=== PATIENT | female | born 1965 | race Caucasian/White ===

== ENCOUNTER → 2016-03-05 | Outpatient (REF) | payer BC ==
[~2016-03-05] MED LIST: BACL10TA2 PO; DICL75TA PO; MAGN250T5 PO; RANI15TA PO; TYLE167L PO; ZYRT10CA PO
== END ==
LOC: M LAB REF 14:22
PROVIDERS: ATTEND Nurse Practitioner Family
DX: N76.0 Acute vaginitis (principal); R26.89 Other abnormalities of gait and mobility

== ENCOUNTER → 2016-04-02 | Outpatient (CLI) | payer BC ==
[~2016-04-02] MED LIST changes: +ISOVUE-M 300 61% 15ML VIAL (Q9967) As Ordered ONE; +LIDOCAINE 1% SDV INJ 30 ML VIAL As Ordered ONE; +diazePAM 5 MG TAB As Ordered ONE; +methylPREDNISolone SUSP 40 MG/ML (DEPO-medrol) VIAL (J1030) As Ordered ONE
--- NOTE | 2016-04-02 13:12 | REP ---
Partial lumbar spine series: Three views. History: Pain. 7 seconds of fluoroscopy time is reported. Findings: A sequence of three fluoroscopically obtained last image hold spot radiographs of the lumbosacral junction document needle position and contrast injection associated with lumbar epidural injection procedure. Signed by Randy Dos Santos MD 04/02/2016 02:59 P
--- NOTE | 2016-04-08 01:23 | ECWPNPC ---
PATIENT NAME: BHAVESH BAILEY : 1965 GENDER: FEMALE VISIT DATE: 04/02/2016 DISCHARGE DATE: 04/02/16 1304 VISIT LOCKED DATE TIME: PHYSICIAN: NEVILLE ANDRADE RESOURCE: NEVILLE ANDRADE REASON FOR APPOINTMENT 1. LESB HISTORY OF PRESENT ILLNESS HISTORY OF PRESENT ILLNESS: PAIN THE PATIENT DESCRIBES THE PAIN... FALL RISK SCREENING: SCREENING :NO FALLS IN THE PAST YEAR CURRENT MEDICATIONS TAKING ZYRTEC 1 1 TAB(S) P.O. DAILY NEEDED, NOTES: 04/01/162029 TAKING EPIPEN 0.3 MG/0.3ML (1:1000) DEVICE 2 ODILON DIRECTED INTRAMUSCULAR PRN BEE STING TAKING DICLOFENAC SODIUM 75 MG TABLET DELAYED RELEASE 1 TABLET ORALLY TWICE A DAY, NOTES: NONE LAST WEEK TAKING RANITIDINE HCL 300 MG CAPSULE 1 CAPSULE AT BEDTIME ORALLY ONCE A DAY, NOTES: 04/02/16 0430 TAKING IBUPROFEN 600 MG TABLET 1 TABLET ORALLY NEEDED 3X/DAY, NOTES: LAST WEEK TAKING HYDROCODONE-ACETAMINOPHEN 10-325 MG TABLET 1 TABLET ORALLY AT PAIN CENTER THE DAY OF PROCEDURE, NOTES: 04/02/16 1133 TAKING OMEPRAZOLE 40 MG CAPSULE DELAYED RELEASE 1 CAPSULE ORALLY ONCE A DAY, NOTES: 04/02/16 043 TAKING VITAMIN D3 2000 UNIT CAPSULE 1 CAPSULE ORALLY ONCE A DAY, NOTES: 04/01/16 TAKING VITAMIN D (ERGOCALCIFEROL) 60308 UNIT CAPSULE 1 CAPSULE ORALLY WEEKLY, NOTES: 03/26/16 TAKING BACLOFEN 10 MG TABLET 1 TAB(S) ORALLYPER PAIN CLINIC DIRECTED, NOTES: LAST WEEK03/30/16 NOT-TAKING CLONAZEPAM 0.5 MG TABLET 1 TABLET ORALLY DIRECTED MEDICATION LIST REVIEWED AND RECONCILED WITH THE PATIENT PAST MEDICAL HISTORY HIATAL HERNIA IBS ALLERGIES AUGMENTIN: YEAST INFECTION: SIDE EFFECTS BACTRIM: SHORTNESS OF BREATH: ALLERGY FLAGYL: RASH/SOB SURGICAL HISTORY LAPAROSCOPY HYSTERECTOMY 2012 SOCIAL HISTORY GENERAL: TOBACCO USE ARE YOU A:NONSMOKER LEARNING BARRIERS / SPECIAL NEEDS ORIENTED TO PLAN OF CARE: PATIENT, PAIN MANAGEMENT PATIENT, ORIENTED TO PLAN OF CARE: PATIENT, PAIN MANAGEMENT PATIENT. NEW PATIENT PAIN DIARY TODAY'S VISITNOTES FROM 0-10, WHAT LEVEL IS YOUR PAIN TODAY?0 PAIN CLINIC PFS, CLERGY, PUBLIC HEALTH REFERRALS PFS REFERRAL NEEDED?NO CLERGY REFERRAL NEEDED?NO PUBLIC HEALTH REFERRAL NEEDED?NO WAS THE PROVIDER NOTIFIED OF ANY PERTINENT INFO?NO PFS REFERRAL NEEDED?NO CLERGY REFERRAL NEEDED?NO PUBLIC HEALTH REFERRAL NEEDED?NO WAS THE PROVIDER NOTIFIED OF ANY PERTINENT INFO?NO HOSPITALIZATION/MAJOR DIAGNOSTIC PROCEDURE FOR SURGERIES REVIEW OF SYSTEMS CONSTITUTIONAL: ANY CHANGE IN YOUR MEDICAL CONDITION? YES PT NOTES MUSCLE CRAMPS AND SPASMS OF LEGS X 1 MONTH. . CHILLS NO . FEVER NO . INFECTION: DO YOU HAVE NEW INFECTIONS? NO . DO YOU HAVE HISTORY OF MRSA? NO . MUSCULOSKELETAL: ANY NEW PATTERNS OF PAIN OR NUMBNESS? NO . GASTROENTEROLOGY: ANY NEW CHANGE IN BOWEL CONTROL? NO . GENITOURINARY: ANY NEW CHANGE IN BLADDER CONTROL? NO . IS THERE A CHANCE YOU COULD BE ? NO . HEMATOLOGY/LYMPH: DO YOU TAKE ANY BLOOD THINNERS? (FOR EXAMPLE- COUMADIN, PLAVIX, AGGRENOX, PLATEL, PRADAXA, OR XARELTO) NO . WHEN WAS YOUR LAST DOSE? DATE: TIME: . NEUROLOGY: HAVE YOU FALLEN IN THE PAST 6 MONTHS? YES FELL ON ICE-NO ED EVAL . ANY NEW EXTREMITY NUMBNESS OR WEAKNESS? NO . CARDIOLOGY: DO YOU HAVE A PACEMAKER OR DEFIBRILLATOR? NO . RESPIRATORY: HAVE YOU BEEN SICK IN THE PAST WEEK? NO . FEVER NO . FLU LIKE SYMPTOMS? NO . COUGH NO . INTEGUMENTARY: DO YOU HAVE ANY RASHES OR OPEN SORES? NO . ALLERGIC/IMMUNO: ARE YOU ALLERGIC TO SHELLFISH OR IV DYE? NO . ANY NEW ALLERGIES? NO . PSYCHIATRIC: DO YOU HAVE THOUGHTS OF HURTING YOURSELF OR SOMEONE ELSE? NO . ARE YOU ABUSED, NEGLECTED, OR IN AN UNSAFE ENVIRONMENT? NO . ENDOCRINOLOGY: ARE YOU DIABETIC? NO . OTHER: DO YOU NEED ANY PRESCRIPTIONS? YES BACLOFEN . IF YES, PLEASE LIST: ____ . ANY NEW PROBLEMS WITH YOUR MEDICATIONS? NO . WHEN DID YOU LAST EAT? ____04/02/16 0430 . WHEN DID YOU LAST DRINK? ____04/02/16 0830 . WHAT DID YOU LAST DRINK? ____WATER/CHRIS JUWAN . NAME OF PERSON DRIVING YOU HOME? ____STEPHY . DO YOU HAVE ANY OTHER QUESTIONS OR CONCERNS NO . REVIEWED BY: PROVIDER: . VITAL SIGNS WT 170 LBS, HT 62 IN, BMI 31.09 INDEX, BP 119/59 MM HG, HR 67 /MIN, RR 16 /MIN, TEMP 97.2 F, OXYGEN SAT % 96, NA INITIALS TL 1047. ASSESSMENTS INTERVERTEBRAL DISC DISORDERS WITH RADICULOPATHY, LUMBOSACRAL REGION - M51.17 (PRIMARY) TREATMENT OTHERS START CYCLOBENZAPRINE HCL TABLET, 10 MG, 1 TABLET, ORALLY NEEDED FOR SPASMS AND PAIN, BEFORE BEDTIME, 30 DAY(S), 30, REFILLS 0 PROCEDURES PRE PROCEDURE DIAGNOSIS LUMBOSACRAL DISC DISORDER WITH RADICULOPATHY, LUMBOSACRAL RADICULOPATHY POST PROCEDURE DIAGNOSIS LUMBOSACRAL RADICULOPATHY , LUMBOSACRAL DISC DISORDER WITH RADICULOPATHY PROCEDURE L5-S1 EPIDURAL STEROID INJECTION UNDER FLUOROSCOPIC GUIDANCE SURGEON DR. NEVILLE ANDRADE STRATEGIC CLIENT EXECUTIVE NONE ANESTHESIA LOCAL PRE PROCEDURE NOTE THE PATIENT HAS A HISTORY OF CHRONIC LOW BACK PAIN. I EVALUATE THE PATIENT AND REVIEWED THE CHART. I WENT OVER THE RISKS, ALTERNATIVES, AND BENEFITS ASSOCIATED WITH THIS PROCEDURE. THE PATIENT WOULD LIKE TO PROCEED AND GIVE CONSENT TO PERFORMED THE PROCEDURE. THE PATIENT DENIES UNEXPLAINABLE WEIGHT LOSS, FEVER, CHILLS, OR NEW CHANGES IN URINARY OR BOWEL CONTROL. DESCRIPTION OF PROCEDURE THE PATIENT WAS BROUGHT TO THE PROCEDURE ROOM AND PLACED IN THE PRONE POSITION. THE LUMBOSACRAL AREA WAS CLEANED WITH BETADINE SOLUTION AND DRAPED ASEPTICALLY. THE PROCEDURE WAS DONE UNDER STERILE CONDITIONS. I CHECKED LATERALITY AND THE LEVEL WHERE THE PROCEDURE WAS GOING TO BE PERFORMED WITH THE PATIENT AND THE SUPPORTING STAFF AT THE MOMENT OF THE TIME OUT IN THE PROCEDURE ROOM. UNDER FLUOROSCOPIC GUIDANCE, THE TARGET POINT WAS SELECTED AT THE INTERLAMINAR LEVEL OF L5-S1. LIDOCAINE WAS USED TO NUMB THE SKIN AND THE SUBCUTANEOUS TISSUE BELOW IT. EPIDURAL TUOHY NEEDLE, 17-GAUGE, WAS ADVANCED UNDER FLUOROSCOPIC GUIDANCE AND FOLLOWING PATIENT FEEDBACK UNTIL THE EPIDURAL SPACE WAS REACHED, 7 CM DEEP INTO THE SKIN BY THE LOSS OF RESISTANCE TECHNIQUE. ISOVUE M DYE 30%, 0.25 ML, WAS INJECTED SHOWING ADEQUATE SPREAD OF THE DYE. THEN, A SOLUTION OF 3 ML OF NORMAL SALINE WITH DEPO-MEDROL 60 MG WAS INJECTED SLOWLY FOLLOWING PATIENT FEEDBACK. THERE WAS NO EVIDENCE OF BLOOD, PARESTHESIA OR CEREBROSPINAL FLUID DURING THE PROCEDURE. THE PATIENT WAS SENT TO THE RECOVERY ROOM. THE PATIENT WAS MOVING THE EXTREMITIES AND DOING WELL. THERE WAS NO COMPLICATION DURING THE PROCEDURE. FLUOROSCOPY TIME WAS 7 SECONDS. POST PROCEDURE NOTE THE PATIENT WILL BE SEEN IN A FOLLOW UP IN THE NEXT FEW WEEKS. INSTRUCTIONS WERE GIVEN, QUESTIONS WERE ANSWERED, AND THE PATIENT EXPRESSED UNDERSTANDING AND AGREES WITH THE PLAN. INSTRUCTIONS WERE GIVEN, QUESTIONS WERE ANSWERED, PATIENT REPORTS UNDERSTANDING AND AGREES WITH THE PLAN. I, SKY MCNAIR, DOCUMENTED THE ABOVE INFORMATION ACTING A SCRIBE FOR DR. ANDRADE. I HAVE REVIEWED THE ABOVE DOCUMENT, WRITTEN BY SKY MCNAIR SCRIBE AND I VERIFY THAT IT IS ACCURATE. DIAGNOSTIC IMAGING [facility] FLUORO GUIDE SPINE INJECTION (PAIN)[id number] PROCEDURE CODES 34829 LUMBAR/SACRAL W/ IMAGING 6045F RADXPS IN END [id number] PXD FOLLOW UP 3 WEEKS ELECTRONICALLY SIGNED BY NEVILLE ANDRADE MD ON 04/06/2016 AT 01:45 PM EST DISCLAIMER : THIS IS A VISIT SUMMARY EXTRACTED FROM THE [employer] CHART. IT IS NOT A COPY OF THE [employer] PROGRESS NOTE. [facility]
== END ==
LOC: M PAIN 10:50
PROVIDERS: ATTEND Anesthesiology
DX: G89.29 Other chronic pain (principal); M51.17 Intervertebral disc disorders with radiculopathy, lumbosacral region; K44.9 Diaphragmatic hernia without obstruction or gangrene; K58.9 Irritable bowel syndrome, unspecified; Z88.8 Allergy status to other drugs, medicaments and biological substances; Z88.3 Allergy status to other anti-infective agents; Z79.1 Long term (current) use of non-steroidal anti-inflammatories (NSAID); Z79.891 Long term (current) use of opiate analgesic; Z79.899 Other long term (current) drug therapy
CPT/HCPCS: 62323; J1030; Q9967

== ENCOUNTER → 2016-04-06 | Outpatient (REF) | payer BC ==
[~2016-04-06] MED LIST changes: -ISOVUE-M 300 61% 15ML VIAL (Q9967) As Ordered ONE; -LIDOCAINE 1% SDV INJ 30 ML VIAL As Ordered ONE; -diazePAM 5 MG TAB As Ordered ONE; -methylPREDNISolone SUSP 40 MG/ML (DEPO-medrol) VIAL (J1030) As Ordered ONE
== END ==
LOC: M LAB REF 16:18
PROVIDERS: ATTEND Nurse Practitioner Women's Health
DX: Z11.3 Encounter for screening for infections with a predominantly sexual mode of transmission (principal)

== ENCOUNTER → 2016-04-16 | Outpatient (CLI) | payer BC ==
--- NOTE | 2016-04-17 00:02 | ECWPNPC ---
PATIENT NAME: BHAVESH BAILEY : 1965 GENDER: FEMALE VISIT DATE: 04/16/2016 DISCHARGE DATE: 04/16/16 1616 VISIT LOCKED DATE TIME: PHYSICIAN: REBECCA BAINS RESOURCE: REBECCA BAINS REASON FOR APPOINTMENT 1. INCREASED PAIN HISTORY OF PRESENT ILLNESS HISTORY OF PRESENT ILLNESS: HERE FOR POST PROCEDUR F/U.HAD LESI 04-02-16.PAIN LEVEL PRE PROCEDURE 9/10 LOW BACK THEN 5/10 POST PROCEDURE THAT CONTINUES TODAY.REPORTING LESS RIGHT LEG ACHING THAT CONTINUES.C/O OF GENERALIZED PAIN AND PARATHESIAS OVER ENTIRE BODY ECSPECIALLY IN [place]ES.PATIENT STATES THAT JOINT PAIN AND PARATHESIAS BEGAN AFTER NCS UPPER AND LOWER EXTREMITIES APROXIMATLEY 1 1/2 YEARS AGO.PATIENT IS VERY ANGRY AND FRUSTRATED BECAUSE SHE HAS BEEN TO ALOT OF PROVIDERS AND NOBODY CAN TELL HER WHY SHE IS FEELING THIS GENERALIZED PAIN AND PARATHESIAS THAT ARE LOCATED WHERE NEEDLES WERE FOR NCS.DESCRIBES ELECTRICAL SHOCK PAIN IN EXTREMITIES.DENIES RECENT FEVER OR SUDDEN WEIGHT LOSS.ADMITS TO BE UNDER ALOT OF STRESS.REPORTS HAVING GOOD SUPPORT OF FRIENDS AT HOME.DENIES BOWEL OR BLADDER INCONTINENCE. PAIN THE PATIENT DESCRIBES THE PAIN... FALL RISK SCREENING: SCREENING :NO FALLS IN THE PAST YEAR CURRENT MEDICATIONS TAKING ZYRTEC 1 1 TAB(S) P.O. DAILY NEEDED, NOTES: 04/01/162029 TAKING EPIPEN 0.3 MG/0.3ML (1:1000) DEVICE 2 ODILON DIRECTED INTRAMUSCULAR PRN BEE STING TAKING DICLOFENAC SODIUM 75 MG TABLET DELAYED RELEASE 1 TABLET ORALLY TWICE A DAY, NOTES: NONE LAST WEEK TAKING RANITIDINE HCL 300 MG CAPSULE 1 CAPSULE AT BEDTIME ORALLY ONCE A DAY, NOTES: 04/02/16429 TAKING IBUPROFEN 600 MG TABLET 1 TABLET ORALLY NEEDED 3X/DAY, NOTES: LAST WEEK TAKING OMEPRAZOLE 40 MG CAPSULE DELAYED RELEASE 1 CAPSULE ORALLY ONCE A DAY, NOTES: 04/02/16429 TAKING VITAMIN D3 2000 UNIT CAPSULE 1 CAPSULE ORALLY ONCE A DAY, NOTES: 04/01/16 TAKING VITAMIN D (ERGOCALCIFEROL) 35950 UNIT CAPSULE 1 CAPSULE ORALLY WEEKLY, NOTES: 03/26/16 TAKING CYCLOBENZAPRINE HCL 10 MG TABLET 1 TABLET ORALLY NEEDED FOR SPASMS AND PAIN BEFORE BEDTIME TAKING ATIVAN 1 MG TABLET 1 TABLET AT BEDTIME NEEDED ORALLY ONCE A DAY NOT-TAKING BACLOFEN 10 MG TABLET 1 TAB(S) ORALLYPER PAIN CLINIC DIRECTED, NOTES: LAST WEEK03/30/16 NOT-TAKING CLONAZEPAM 0.5 MG TABLET 1 TABLET ORALLY DIRECTED DISCONTINUED HYDROCODONE-ACETAMINOPHEN 10-325 MG TABLET 1 TABLET ORALLY AT PAIN CENTER THE DAY OF PROCEDURE, NOTES: 04/02/16 1133 MEDICATION LIST REVIEWED AND RECONCILED WITH THE PATIENT PAST MEDICAL HISTORY HIATAL HERNIA IBS ALLERGIES AUGMENTIN: YEAST INFECTION: SIDE EFFECTS BACTRIM: SHORTNESS OF BREATH: ALLERGY FLAGYL: RASH/SOB SOCIAL HISTORY GENERAL: TOBACCO USE ARE YOU A:NONSMOKER LEARNING BARRIERS / SPECIAL NEEDS ORIENTED TO PLAN OF CARE: PATIENT, PAIN MANAGEMENT PATIENT, ORIENTED TO PLAN OF CARE: PATIENT, PAIN MANAGEMENT PATIENT. NEW PATIENT PAIN DIARY TODAY'S VISITNOTES FROM 0-10, WHAT LEVEL IS YOUR PAIN TODAY?0 PAIN CLINIC PFS, CLERGY, PUBLIC HEALTH REFERRALS PFS REFERRAL NEEDED?NO CLERGY REFERRAL NEEDED?NO PUBLIC HEALTH REFERRAL NEEDED?NO WAS THE PROVIDER NOTIFIED OF ANY PERTINENT INFO?NO PFS REFERRAL NEEDED?NO CLERGY REFERRAL NEEDED?NO PUBLIC HEALTH REFERRAL NEEDED?NO WAS THE PROVIDER NOTIFIED OF ANY PERTINENT INFO?NO REVIEW OF SYSTEMS CONSTITUTIONAL: ANY CHANGE IN YOUR MEDICAL CONDITION? NO . RECENT ILLNESS DENIES . CHILLS NO . FEVER NO . WEIGHT LOSS DENIES . INFECTION: DO YOU HAVE NEW INFECTIONS? NO . DO YOU HAVE HISTORY OF MRSA? NO . MUSCULOSKELETAL: ANY NEW PATTERNS OF PAIN OR NUMBNESS? NO . GASTROENTEROLOGY: ANY NEW CHANGE IN BOWEL CONTROL? NO . GENITOURINARY: ANY NEW CHANGE IN BLADDER CONTROL? NO . IS THERE A CHANCE YOU COULD BE ? NO . HEMATOLOGY/LYMPH: DO YOU TAKE ANY BLOOD THINNERS? (FOR EXAMPLE- COUMADIN, PLAVIX, AGGRENOX, PLATEL, PRADAXA, OR XARELTO) NO . WHEN WAS YOUR LAST DOSE? DATE: TIME: . NEUROLOGY: HAVE YOU FALLEN IN THE PAST 6 MONTHS? YES NO INJURY-NO ED EVAL . ANY NEW EXTREMITY NUMBNESS OR WEAKNESS? NO . CARDIOLOGY: DO YOU HAVE A PACEMAKER OR DEFIBRILLATOR? NO . CHEST PAIN DENIES . SHORTNESS OF BREATH DENIES . RESPIRATORY: HAVE YOU BEEN SICK IN THE PAST WEEK? NO . FEVER NO . FLU LIKE SYMPTOMS? NO . COUGH NO, DENIES . SHORTNESS OF BREATH DENIES . INTEGUMENTARY: DO YOU HAVE ANY RASHES OR OPEN SORES? NO . ALLERGIC/IMMUNO: ARE YOU ALLERGIC TO SHELLFISH OR IV DYE? NO . ANY NEW ALLERGIES? NO . PSYCHIATRIC: DO YOU HAVE THOUGHTS OF HURTING YOURSELF OR SOMEONE ELSE? NO . ARE YOU ABUSED, NEGLECTED, OR IN AN UNSAFE ENVIRONMENT? NO . ENDOCRINOLOGY: ARE YOU DIABETIC? NO . OTHER: DO YOU NEED ANY PRESCRIPTIONS? NO . IF YES, PLEASE LIST: ____ . ANY NEW PROBLEMS WITH YOUR MEDICATIONS? NO . WHEN DID YOU LAST EAT? ____ . WHEN DID YOU LAST DRINK? ____ . WHAT DID YOU LAST DRINK? ____ . NAME OF PERSON DRIVING YOU HOME? ____ . DO YOU HAVE ANY OTHER QUESTIONS OR CONCERNS NO . REVIEWED BY: PROVIDER: REBECCA BUENO . VITAL SIGNS WT 171.4 LBS, HT 62 IN, BMI 31.35 INDEX, BP 141/71 MM HG, HR 74 /MIN, RR 16 /MIN, TEMP 99.5 F, OXYGEN SAT % 95%, NA INITIALS SC 15:07, REVIEWED BY: CYNTHIAF. EXAMINATION GENERAL EXAMINATION: LUNGS:LUNG SOUNDS ARE CLEAR. HEART:HEART RATE REGULAR. MUSCULOSKELETAL:*, MUSCLE STRENGTH TESTING 5/5 BILATERAL UPPER AND LOWER EXTREMITIES., PALPATION: NEGATIVE FOR PAIN OVER L/S SPINE. NEGATIVE FOR PAIN OVER L/S PARASPINALS.. DIAGNOSTIC:MRI L/S [id number]-REVIEWED. ASSESSMENTS INTERVERTEBRAL DISC DISORDERS WITH RADICULOPATHY, LUMBAR REGION - M51.16 (PRIMARY) NEUROPATHY - G62.9 ARTHROPATHY - M12.9 TREATMENT OTHERS START LYRICA CAPSULE, 25 MG, 1, ORALLY, BID, 30 DAY(S), 60, REFILLS 2 PREVENTIVE MEDICINE PAIN CLINIC TEACHING: MEDICATIONS LYRICA PRINTED HANDOUT GIVEN TO PT.. PROCEDURE CODES FA211 ESTABILISHED PATIENT [facility] CHARGE DISPOSITION & COMMUNICATION FOLLOW UP 4 WEEKS ELECTRONICALLY SIGNED BY MYLES JOHNSON ON 04/16/2016 AT 04:29 PM EST DISCLAIMER : THIS IS A VISIT SUMMARY EXTRACTED FROM THE [employer] CHART. IT IS NOT A COPY OF THE [employer] PROGRESS NOTE. MTDD
== END ==
LOC: M PAIN 14:40
PROVIDERS: ATTEND Nurse Practitioner Family
DX: Z09 Encounter for follow-up examination after completed treatment for conditions other than malignant neoplasm (principal); G89.29 Other chronic pain; M51.16 Intervertebral disc disorders with radiculopathy, lumbar region; G62.9 Polyneuropathy, unspecified; M12.9 Arthropathy, unspecified; K58.9 Irritable bowel syndrome, unspecified; K44.0 Diaphragmatic hernia with obstruction, without gangrene; Z88.8 Allergy status to other drugs, medicaments and biological substances; Z88.1 Allergy status to other antibiotic agents; Z79.1 Long term (current) use of non-steroidal anti-inflammatories (NSAID); Z79.899 Other long term (current) drug therapy

== ENCOUNTER → 2016-05-12 | Outpatient (REF) | payer BC | LOC: M LAB REF 18:15 | PROVIDERS: ATTEND Nurse Practitioner Women's Health | DX: R35.0 Frequency of micturition (principal); R30.0 Dysuria ==

== ENCOUNTER → 2016-05-17 | Outpatient (REF) | payer BC | LOC: M LAB REF 17:27 | PROVIDERS: ATTEND Nurse Practitioner Women's Health | DX: R30.0 Dysuria (principal) ==

== ENCOUNTER → 2016-05-27 | Outpatient (CLI) | payer BC ==
--- NOTE | 2016-06-08 00:22 | ECWPNPC ---
PATIENT NAME: BHAVESH BAILEY : 1965 GENDER: FEMALE VISIT DATE: 05/27/2016 DISCHARGE DATE: 05/27/16 1603 VISIT LOCKED DATE TIME: PHYSICIAN: REBECCA BAINS RESOURCE: REBECCA BAINS REASON FOR APPOINTMENT 1. BACK HISTORY OF PRESENT ILLNESS HISTORY OF PRESENT ILLNESS: HERE FOR F/U OF CHRONIC LOW BACK PAIN AND RIGHT LEG PAIN.CHIEF COMPLAINT IS RIGHT GROIN PAIN AND RIGHT THIGH PAIN.REPORTING STABBING PAIN RIGHT THIGH.ELECTRIC SHOCK RIGHT ARM THAT OCCURED SINCE NCS HAS RESOLVED.REPORTING CHRONIC URINARY URGENCY.REPORTING NORMAL BOWEL MOVEMENTS.WEIGHT IS STABLE.RATING PAIN VAS 8/10.DISCUSSED MEDICATION AND TREATMENT OPTIONS.TRIALED LYRICA AT LAST VISIT IN MARCH.TOOK 2 DOSES AND IT CAUSED STOMACH ISSUES. PAIN THE PATIENT DESCRIBES THE PAIN... FALL RISK SCREENING: SCREENING :NO FALLS IN THE PAST YEAR CURRENT MEDICATIONS TAKING ZYRTEC 1 1 TAB(S) P.O. DAILY NEEDED TAKING EPIPEN 0.3 MG/0.3ML (1:1000) DEVICE 2 ODILON DIRECTED INTRAMUSCULAR PRN BEE STING TAKING DICLOFENAC SODIUM 75 MG TABLET DELAYED RELEASE 1 TABLET ORALLY TWICE A DAY TAKING RANITIDINE HCL 300 MG CAPSULE 1 CAPSULE AT BEDTIME ORALLY ONCE A DAY TAKING IBUPROFEN 600 MG TABLET 1 TABLET ORALLY NEEDED 3X/DAY TAKING OMEPRAZOLE 40 MG CAPSULE DELAYED RELEASE 1 CAPSULE ORALLY ONCE A DAY TAKING VITAMIN D3 2000 UNIT CAPSULE 1 CAPSULE ORALLY ONCE A DAY TAKING CYCLOBENZAPRINE HCL 10 MG TABLET 1 TABLET ORALLY NEEDED FOR SPASMS AND PAIN BEFORE BEDTIME TAKING ATIVAN 1 MG TABLET 1 TABLET AT BEDTIME NEEDED ORALLY ONCE A DAY TAKING VITAMIN B COMPLEX - TABLET 1 TAB ORALLY DAILY NOT-TAKING LYRICA 25 MG CAPSULE 1 ORALLY BID NOT-TAKING BACLOFEN 10 MG TABLET 1 TAB(S) ORALLYPER PAIN CLINIC DIRECTED, NOTES: LAST WEEK03/30/16 NOT-TAKING CLONAZEPAM 0.5 MG TABLET 1 TABLET ORALLY DIRECTED DISCONTINUED VITAMIN D (ERGOCALCIFEROL) 80638 UNIT CAPSULE 1 CAPSULE ORALLY WEEKLY MEDICATION LIST REVIEWED AND RECONCILED WITH THE PATIENT PAST MEDICAL HISTORY HIATAL HERNIA IBS ALLERGIES AUGMENTIN: YEAST INFECTION: SIDE EFFECTS BACTRIM: SHORTNESS OF BREATH: ALLERGY FLAGYL: RASH/SOB: ALLERGY LYRICA: MADE HER FEEL WIERD: SIDE EFFECTS SOCIAL HISTORY GENERAL: PAIN CLINIC PFS, CLERGY, PUBLIC HEALTH REFERRALS CLERGY REFERRAL NEEDED?NO WAS THE PROVIDER NOTIFIED OF ANY PERTINENT INFO?NO PFS REFERRAL NEEDED?NO PUBLIC HEALTH REFERRAL NEEDED?NO PATIENT: ____. REVIEW OF SYSTEMS CONSTITUTIONAL: ANY CHANGE IN YOUR MEDICAL CONDITION? NO . CHILLS NO . FEVER NO . INFECTION: DO YOU HAVE NEW INFECTIONS? NO . DO YOU HAVE HISTORY OF MRSA? NO . MUSCULOSKELETAL: ANY NEW PATTERNS OF PAIN OR NUMBNESS? NO . GASTROENTEROLOGY: ANY NEW CHANGE IN BOWEL CONTROL? NO . GENITOURINARY: ANY NEW CHANGE IN BLADDER CONTROL? NO . IS THERE A CHANCE YOU COULD BE ? NO . HEMATOLOGY/LYMPH: DO YOU TAKE ANY BLOOD THINNERS? (FOR EXAMPLE- COUMADIN, PLAVIX, AGGRENOX, PLATEL, PRADAXA, OR XARELTO) NO . WHEN WAS YOUR LAST DOSE? DATE: TIME: . NEUROLOGY: HAVE YOU FALLEN IN THE PAST 6 MONTHS? NO . ANY NEW EXTREMITY NUMBNESS OR WEAKNESS? NO . CARDIOLOGY: DO YOU HAVE A PACEMAKER OR DEFIBRILLATOR? NO . RESPIRATORY: HAVE YOU BEEN SICK IN THE PAST WEEK? NO . FEVER NO . FLU LIKE SYMPTOMS? NO . COUGH NO . INTEGUMENTARY: DO YOU HAVE ANY RASHES OR OPEN SORES? NO . ALLERGIC/IMMUNO: ARE YOU ALLERGIC TO SHELLFISH OR IV DYE? NO . ANY NEW ALLERGIES? NO . PSYCHIATRIC: DO YOU HAVE THOUGHTS OF HURTING YOURSELF OR SOMEONE ELSE? NO . ARE YOU ABUSED, NEGLECTED, OR IN AN UNSAFE ENVIRONMENT? NO . ENDOCRINOLOGY: ARE YOU DIABETIC? NO . OTHER: DO YOU NEED ANY PRESCRIPTIONS? NOT SURE . IF YES, PLEASE LIST: MAY NEED FLEXERIL . ANY NEW PROBLEMS WITH YOUR MEDICATIONS? NO . WHEN DID YOU LAST EAT? ____ . WHEN DID YOU LAST DRINK? ____ . WHAT DID YOU LAST DRINK? ____ . NAME OF PERSON DRIVING YOU HOME? ____ . DO YOU HAVE ANY OTHER QUESTIONS OR CONCERNS CONCERNED ABOUT THE STABBING PAIN IN HER RIGHT GROIN, HIP & THIGH. THIS HAS BEEN BOTHERING HER SINCE LAST JULY--IT STARTED OUT WITH THE FEELING THAT SHE PULLED A MUSCLE IN THE GROIN AREA . REVIEWED BY: PROVIDER: REBECCA BUENO . VITAL SIGNS WT 170 LBS, HT 62 IN, BMI 31.09 INDEX, BP 128/76 MM HG, HR 65 /MIN, RR 16 /MIN, TEMP 99.2 F, OXYGEN SAT % 97, NA INITIALS HS, REVIEWED BY: AD. EXAMINATION GENERAL EXAMINATION: LUNGS:LUNG SOUNDS ARE CLEAR. HEART:HEART RATE REGULAR. MUSCULOSKELETAL:*, MUSCLE STRENGTH TESTING 5/5 BILATERAL UPPER AND LOWER EXTREMITIES., PALPATION: NEGATIVE FOR PAIN OVER L/S SPINE. NEGATIVE FOR PAIN OVER L/S PARASPINALS.. DIAGNOSTIC:MRI L/S [id number]-REVIEWED. ASSESSMENTS INTERVERTEBRAL DISC DISORDERS WITH RADICULOPATHY, LUMBAR REGION - M51.16 (PRIMARY) NEUROPATHY - G62.9 ARTHROPATHY - M12.9 TREATMENT INTERVERTEBRAL DISC DISORDERS WITH RADICULOPATHY, LUMBAR REGION START CYMBALTA CAPSULE DELAYED RELEASE PARTICLES, 20 MG, 1 CAPSULE, ORALLY, ONCE A DAY, 30 DAY(S), 30 CAPSULE, REFILLS 2 PREVENTIVE MEDICINE PAIN CLINIC TEACHING: MEDICATIONS PRINTED INFORMATION ON CYMBALTA GIVEN TO AND EXPLAINED TO PATIENT AND SHE VERBALIZED UNDERSTANDING.. PROCEDURE CODES FA211 ESTABILISHED PATIENT [facility] CHARGE DISPOSITION & COMMUNICATION FOLLOW UP 6 WEEKS ELECTRONICALLY SIGNED BY MYLES JOHNSON ON 06/07/2016 AT 03:59 PM EDT DISCLAIMER : THIS IS A VISIT SUMMARY EXTRACTED FROM THE [employer] CHART. IT IS NOT A COPY OF THE [employer] PROGRESS NOTE. RUB[facility]
== END ==
LOC: M PAIN 14:40
PROVIDERS: ATTEND Nurse Practitioner Family
DX: Z09 Encounter for follow-up examination after completed treatment for conditions other than malignant neoplasm (principal); G89.29 Other chronic pain; M51.16 Intervertebral disc disorders with radiculopathy, lumbar region; M12.9 Arthropathy, unspecified; G62.9 Polyneuropathy, unspecified; K44.9 Diaphragmatic hernia without obstruction or gangrene; K58.9 Irritable bowel syndrome, unspecified; Z88.1 Allergy status to other antibiotic agents; Z88.8 Allergy status to other drugs, medicaments and biological substances; Z79.899 Other long term (current) drug therapy

== ENCOUNTER → 2016-06-22 | Outpatient (CLI) | payer BC ==
--- NOTE | 2016-06-30 00:10 | ECWPNPC ---
PATIENT NAME: BHAVESH BAILEY : 1965 GENDER: FEMALE VISIT DATE: 06/22/2016 DISCHARGE DATE: 06/22/16 1439 VISIT LOCKED DATE TIME: PHYSICIAN: REBECCA BAINS RESOURCE: REBECCA BAINS REASON FOR APPOINTMENT 1. BACK HISTORY OF PRESENT ILLNESS HISTORY OF PRESENT ILLNESS: HERE FOR F/U AND MANAGEMENT OF CHRONIC LOW BACK /RIGHT LEG PAIN.TRIALED ON CYMBALTA 20MG DAILY AND THAT CAUSED NAUSEA AND DIZZINESS.RATING PAIN VAS 7/10.CHIEF COMPLAINT IS RIGHT HIP AND GROIN. PAIN THE PATIENT DESCRIBES THE PAIN... FALL RISK SCREENING: SCREENING :NO FALLS IN THE PAST YEAR CURRENT MEDICATIONS TAKING ZYRTEC 1 1 TAB(S) P.O. DAILY NEEDED TAKING EPIPEN 0.3 MG/0.3ML (1:1000) DEVICE 2 ODILON DIRECTED INTRAMUSCULAR PRN BEE STING TAKING DICLOFENAC SODIUM 75 MG TABLET DELAYED RELEASE 1 TABLET ORALLY TWICE A DAY TAKING RANITIDINE HCL 300 MG CAPSULE 1 CAPSULE AT BEDTIME ORALLY ONCE A DAY NEEDED TAKING IBUPROFEN 600 MG TABLET 1 TABLET ORALLY NEEDED 3X/DAY TAKING OMEPRAZOLE 40 MG CAPSULE DELAYED RELEASE 1 CAPSULE ORALLY ONCE A DAY NEEDED TAKING VITAMIN D3 2000 UNIT CAPSULE 1 CAPSULE ORALLY ONCE A DAY TAKING CYCLOBENZAPRINE HCL 10 MG TABLET 1 TABLET ORALLY NEEDED FOR SPASMS AND PAIN BEFORE BEDTIME TAKING VITAMIN B COMPLEX - TABLET 1 TAB ORALLY DAILY TAKING KLONOPIN 0.5 MG TABLET 1 TABLET ORALLY DAILY NEEDED TAKING NAPROXEN 500 MG TABLET 1 TABLET NEEDED ORALLY EVERY 12 HRS NOT-TAKING ATIVAN 1 MG TABLET 1 TABLET AT BEDTIME NEEDED ORALLY ONCE A DAY NOT-TAKING CYMBALTA 20 MG CAPSULE DELAYED RELEASE PARTICLES 1 CAPSULE ORALLY ONCE A DAY NOT-TAKING LYRICA 25 MG CAPSULE 1 ORALLY BID NOT-TAKING BACLOFEN 10 MG TABLET 1 TAB(S) ORALLYPER PAIN CLINIC DIRECTED, NOTES: LAST WEEK03/30/16 NOT-TAKING CLONAZEPAM 0.5 MG TABLET 1 TABLET ORALLY DIRECTED MEDICATION LIST REVIEWED AND RECONCILED WITH THE PATIENT PAST MEDICAL HISTORY HIATAL HERNIA IBS ALLERGIES AUGMENTIN: YEAST INFECTION: SIDE EFFECTS BACTRIM: SHORTNESS OF BREATH: ALLERGY FLAGYL: RASH/SOB: ALLERGY LYRICA: MADE HER FEEL WIERD: SIDE EFFECTS CYMBALTA: NAUSEA AND DIZZINESS: SIDE EFFECTS SURGICAL HISTORY LAPAROSCOPY HYSTERECTOMY 2013 HOSPITALIZATION/MAJOR DIAGNOSTIC PROCEDURE FOR SURGERIES REVIEW OF SYSTEMS CONSTITUTIONAL: ANY CHANGE IN YOUR MEDICAL CONDITION? NO . CHILLS NO . FEVER NO . INFECTION: DO YOU HAVE NEW INFECTIONS? NO . DO YOU HAVE HISTORY OF MRSA? NO . MUSCULOSKELETAL: ANY NEW PATTERNS OF PAIN OR NUMBNESS? NO . GASTROENTEROLOGY: ANY NEW CHANGE IN BOWEL CONTROL? NO . GENITOURINARY: ANY NEW CHANGE IN BLADDER CONTROL? NO . IS THERE A CHANCE YOU COULD BE ? NO . HEMATOLOGY/LYMPH: DO YOU TAKE ANY BLOOD THINNERS? (FOR EXAMPLE- COUMADIN, PLAVIX, AGGRENOX, PLATEL, PRADAXA, OR XARELTO) NO . WHEN WAS YOUR LAST DOSE? DATE: TIME: . NEUROLOGY: HAVE YOU FALLEN IN THE PAST 6 MONTHS? YES . ANY NEW EXTREMITY NUMBNESS OR WEAKNESS? NO . CARDIOLOGY: DO YOU HAVE A PACEMAKER OR DEFIBRILLATOR? NO . RESPIRATORY: HAVE YOU BEEN SICK IN THE PAST WEEK? NO . FEVER NO . FLU LIKE SYMPTOMS? NO . COUGH NO . INTEGUMENTARY: DO YOU HAVE ANY RASHES OR OPEN SORES? NO . ALLERGIC/IMMUNO: ARE YOU ALLERGIC TO SHELLFISH OR IV DYE? NO . ANY NEW ALLERGIES? NO . PSYCHIATRIC: DO YOU HAVE THOUGHTS OF HURTING YOURSELF OR SOMEONE ELSE? NO . ARE YOU ABUSED, NEGLECTED, OR IN AN UNSAFE ENVIRONMENT? NO . ENDOCRINOLOGY: ARE YOU DIABETIC? NO . OTHER: DO YOU NEED ANY PRESCRIPTIONS? NO . IF YES, PLEASE LIST: ____ . ANY NEW PROBLEMS WITH YOUR MEDICATIONS? NO . WHEN DID YOU LAST EAT? ____ . WHEN DID YOU LAST DRINK? ____ . WHAT DID YOU LAST DRINK? ____ . NAME OF PERSON DRIVING YOU HOME? ____ . DO YOU HAVE ANY OTHER QUESTIONS OR CONCERNS YES, HIP PAIN . REVIEWED BY: PROVIDER: REBECCA BUENO . VITAL SIGNS WT 166 LBS, HT 62 IN, BMI 30.36 INDEX, BP 120/56 MM HG, HR 79 /MIN, RR 16 /MIN, TEMP 98.5 F, OXYGEN SAT % 92, NA INITIALS AW 1342, REVIEWED BY: CS. EXAMINATION GENERAL EXAMINATION: LUNGS:LUNG SOUNDS ARE CLEAR. HEART:HEART RATE REGULAR. MUSCULOSKELETAL:*, MUSCLE STRENGTH TESTING 5/5 BILATERAL UPPER AND LOWER EXTREMITIES., PALPATION: NEGATIVE FOR PAIN OVER L/S SPINE. NEGATIVE FOR PAIN OVER L/S PARASPINALS.. DIAGNOSTIC:MRI L/S [id number]. ASSESSMENTS INTERVERTEBRAL DISC DISORDERS WITH RADICULOPATHY, LUMBAR REGION - M51.16 (PRIMARY) PAIN IN LEFT HIP - M25.552 PAIN IN RIGHT HIP - M25.551 TREATMENT INTERVERTEBRAL DISC DISORDERS WITH RADICULOPATHY, LUMBAR REGION START METHYLPREDNISOLONE TABLET THERAPY PACK, 4 MG, DIRECTED, ORALLY, DIRECTED, 14 DAY(S), 1, REFILLS 0 DIAGNOSTIC IMAGING [facility] MRI HIP WITHOUT [id number] MRI SPINE, L.S. WITHOUT [id number] PROCEDURE CODES FA211 ESTABILISHED PATIENT [facility] CHARGE DISPOSITION & COMMUNICATION FOLLOW UP 4 WEEKS (REASON: MRI BILAT. HIPS/ L/S MRI) ELECTRONICALLY SIGNED BY MYLES JOHNSON ON 06/29/2016 AT 02:29 PM EDT DISCLAIMER : THIS IS A VISIT SUMMARY EXTRACTED FROM THE [employer] CHART. IT IS NOT A COPY OF THE [employer] PROGRESS NOTE. RUBENS
== END ==
LOC: M PAIN 13:40
PROVIDERS: ATTEND Nurse Practitioner Family
DX: G89.29 Other chronic pain (principal); M51.16 Intervertebral disc disorders with radiculopathy, lumbar region; M25.552 Pain in left hip; M25.551 Pain in right hip; K44.9 Diaphragmatic hernia without obstruction or gangrene; Z88.1 Allergy status to other antibiotic agents; Z88.8 Allergy status to other drugs, medicaments and biological substances; Z79.899 Other long term (current) drug therapy

== ENCOUNTER → 2016-06-24 | Outpatient (REF) | payer BC | LOC: M LAB REF 12:54 | PROVIDERS: ATTEND Nurse Practitioner Women's Health | DX: Z11.3 Encounter for screening for infections with a predominantly sexual mode of transmission (principal) ==

== ENCOUNTER → 2016-07-07 | Outpatient (CLI) | payer BC ==
--- NOTE | 2016-07-07 16:25 | REP ---
Clinical: Left lower quadrant pain. Technique: Transabdominal pelvic ultrasound followed by transvaginal examination for better evaluation of the endometrium and adnexa with color Doppler evaluation of the ovaries. Findings: The patient is status post hysterectomy. No pelvic fluid or mass lesion. Left ovary is normal in appearance and vascularity with a 1.8 cm dominant follicle and measures 3.9 x 3.2 x 2.8 cm; RI equals 0.46. Right ovary measures 3.8 x 2.9 x 2.3 cm with normal vascularity and no evidence for torsion; RI equal 0.64. 1.2 cm echogenic focus in the right ovary may represent hemorrhagic cyst or dermoid. Impression: 1. Status post hysterectomy without pelvic fluid or mass lesion. 2. Ovaries without torsion. 1.2 cm echogenic focus in the right ovary may represent hemorrhagic cyst or dermoid. Consider follow-up examination in or cystic weeks to evaluate for resolution. Signed by Jeremias Werner MD 07/07/2016 04:17 P
== END ==
LOC: M RAD 15:49
PROVIDERS: ATTEND Nurse Practitioner Women's Health
DX: R93.5 Abnormal findings on diagnostic imaging of other abdominal regions, including retroperitoneum (principal); Z98.890 Other specified postprocedural states

== ENCOUNTER → 2016-07-21 | Outpatient (CLI) | payer BC ==
--- NOTE | 2016-08-11 02:01 | ECWPNPC ---
PATIENT NAME: BHAVESH BAILEY : 1965 GENDER: FEMALE VISIT DATE: 07/21/2016 DISCHARGE DATE: 07/21/16 1643 VISIT LOCKED DATE TIME: PHYSICIAN: REBECCA BAINS RESOURCE: REBECCA BAINS REASON FOR APPOINTMENT 1. REVIEW MRI HISTORY OF PRESENT ILLNESS HISTORY OF PRESENT ILLNESS: HERE FOR F/UOF PERSISTENT RIGHT HIP,RIGHT LEG AND BILATERAL YOUNG PAIN.RATING PAIN VAS 7/10.DID NOT START PREDNISONE DOSE PACK STARTED AT LAST VISIT.SCARD OF POSSIBLE SIDE EFFECTS.HAS TRIALED MULTIPLE MEDICATIONS BUT HAS STOPPED ALL OF THEM DUE TO SIDE EFFECTS.DISCUSSED MEDICATION AND TREATMENT OPTIONS.MRI L/S SPINE I ORDERED AND DONE ON 07-12-2016 IS REVIEWED WITH PATIENT.DISCUSSED TREATMENT OPTIONS. PAIN THE PATIENT DESCRIBES THE PAIN... FALL RISK SCREENING: SCREENING :NO FALLS IN THE PAST YEAR CURRENT MEDICATIONS TAKING ZYRTEC 1 1 TAB(S) P.O. DAILY NEEDED TAKING EPIPEN 0.3 MG/0.3ML (1:1000) DEVICE 2 ODILON DIRECTED INTRAMUSCULAR PRN BEE STING TAKING DICLOFENAC SODIUM 75 MG TABLET DELAYED RELEASE 1 TABLET ORALLY TWICE A DAY TAKING RANITIDINE HCL 300 MG CAPSULE 1 CAPSULE AT BEDTIME ORALLY ONCE A DAY NEEDED TAKING IBUPROFEN 600 MG TABLET 1 TABLET ORALLY NEEDED 3X/DAY TAKING OMEPRAZOLE 40 MG CAPSULE DELAYED RELEASE 1 CAPSULE ORALLY ONCE A DAY NEEDED TAKING VITAMIN D3 2000 UNIT CAPSULE 1 CAPSULE ORALLY ONCE A DAY TAKING CYCLOBENZAPRINE HCL 10 MG TABLET 1 TABLET ORALLY NEEDED FOR SPASMS AND PAIN BEFORE BEDTIME TAKING VITAMIN B COMPLEX - TABLET 1 TAB ORALLY DAILY TAKING KLONOPIN 0.5 MG TABLET 1 TABLET ORALLY DAILY NEEDED TAKING NAPROXEN 500 MG TABLET 1 TABLET NEEDED ORALLY EVERY 12 HRS NOT-TAKING METHYLPREDNISOLONE 4 MG TABLET THERAPY PACK DIRECTED ORALLY DIRECTED NOT-TAKING ATIVAN 1 MG TABLET 1 TABLET AT BEDTIME NEEDED ORALLY ONCE A DAY NOT-TAKING CYMBALTA 20 MG CAPSULE DELAYED RELEASE PARTICLES 1 CAPSULE ORALLY ONCE A DAY NOT-TAKING LYRICA 25 MG CAPSULE 1 ORALLY BID NOT-TAKING BACLOFEN 10 MG TABLET 1 TAB(S) ORALLYPER PAIN CLINIC DIRECTED, NOTES: LAST WEEK03/30/16 NOT-TAKING CLONAZEPAM 0.5 MG TABLET 1 TABLET ORALLY DIRECTED MEDICATION LIST REVIEWED AND RECONCILED WITH THE PATIENT PAST MEDICAL HISTORY HIATAL HERNIA IBS ALLERGIES AUGMENTIN: YEAST INFECTION: SIDE EFFECTS BACTRIM: SHORTNESS OF BREATH: ALLERGY FLAGYL: RASH/SOB: ALLERGY LYRICA: MADE HER FEEL WIERD: SIDE EFFECTS CYMBALTA: NAUSEA AND DIZZINESS: SIDE EFFECTS SURGICAL HISTORY LAPAROSCOPY HYSTERECTOMY 2013 HOSPITALIZATION/MAJOR DIAGNOSTIC PROCEDURE FOR SURGERIES REVIEW OF SYSTEMS CONSTITUTIONAL: ANY CHANGE IN YOUR MEDICAL CONDITION? YESPT C/O BILAT HIP PAIN R > L PAIN . CHILLS NO . FEVER NO . INFECTION: DO YOU HAVE NEW INFECTIONS? NO . DO YOU HAVE HISTORY OF MRSA? NO . MUSCULOSKELETAL: ANY NEW PATTERNS OF PAIN OR NUMBNESS? YES, PT C/O RIGHT HIP PAIN -08/30 . GASTROENTEROLOGY: ANY NEW CHANGE IN BOWEL CONTROL? YES, CONSTIPATION . GENITOURINARY: ANY NEW CHANGE IN BLADDER CONTROL? NO . IS THERE A CHANCE YOU COULD BE ? NO . HEMATOLOGY/LYMPH: DO YOU TAKE ANY BLOOD THINNERS? (FOR EXAMPLE- COUMADIN, PLAVIX, AGGRENOX, PLATEL, PRADAXA, OR XARELTO) NO . WHEN WAS YOUR LAST DOSE? DATE: TIME: . NEUROLOGY: HAVE YOU FALLEN IN THE PAST 6 MONTHS? YES, FELL ON ICE. PT DENIES MAJOR INJURIES REQUIRING MEDICAL TX . ANY NEW EXTREMITY NUMBNESS OR WEAKNESS? NO . CARDIOLOGY: DO YOU HAVE A PACEMAKER OR DEFIBRILLATOR? NO . RESPIRATORY: HAVE YOU BEEN SICK IN THE PAST WEEK? NO . FEVER NO . FLU LIKE SYMPTOMS? NO . COUGH NO . INTEGUMENTARY: DO YOU HAVE ANY RASHES OR OPEN SORES? NO . ALLERGIC/IMMUNO: ARE YOU ALLERGIC TO SHELLFISH OR IV DYE? NO . ANY NEW ALLERGIES? NO . PSYCHIATRIC: DO YOU HAVE THOUGHTS OF HURTING YOURSELF OR SOMEONE ELSE? NO . ARE YOU ABUSED, NEGLECTED, OR IN AN UNSAFE ENVIRONMENT? NO . ENDOCRINOLOGY: ARE YOU DIABETIC? NO . OTHER: DO YOU NEED ANY PRESCRIPTIONS? NO, PT STATES SHE HAS NOT STARTED METHYLPREDNISOLONE YET. . IF YES, PLEASE LIST: ____ . ANY NEW PROBLEMS WITH YOUR MEDICATIONS? NO . WHEN DID YOU LAST EAT? ____ . WHEN DID YOU LAST DRINK? ____ . WHAT DID YOU LAST DRINK? ____ . NAME OF PERSON DRIVING YOU HOME? ____ . DO YOU HAVE ANY OTHER QUESTIONS OR CONCERNS NO . REVIEWED BY: PROVIDER: REBECCA BUENO . VITAL SIGNS WT 166 LBS, HT 62 IN, BMI 30.36 INDEX, BP 140/77 MM HG, HR 72 /MIN, RR 16 /MIN, TEMP 99.2 F, OXYGEN SAT % 97%, NA INITIALS SC 15:42. EXAMINATION GENERAL EXAMINATION: LUNGS:LUNG SOUNDS ARE CLEAR. HEART:HEART RATE REGULAR. MUSCULOSKELETAL:*, MUSCLE STRENGTH TESTING 5/5 BILATERAL UPPER AND LOWER EXTREMITIES., PALPATION: NEGATIVE FOR PAIN OVER L/S SPINE. NEGATIVE FOR PAIN OVER L/S PARASPINALS.NON TENDER OVER HIPS BILATERALLY. DIAGNOSTIC:MRI L/S [id number]. ASSESSMENTS PAIN IN LEFT HIP - M25.552 (PRIMARY) PAIN IN RIGHT HIP - M25.551 TREATMENT PAIN IN LEFT HIP NOTES: START PREDNISONE DOSE PACK. DIAGNOSTIC IMAGING [facility] MRI HIP WITHOUT [id number] PROCEDURE CODES FA211 ESTABILISHED PATIENT [facility] CHARGE DISPOSITION & COMMUNICATION FOLLOW UP 4 WEEKS ELECTRONICALLY SIGNED BY MYLES JOHNSON ON 08/09/2016 AT 06:26 PM EDT DISCLAIMER : THIS IS A VISIT SUMMARY EXTRACTED FROM THE [employer] CHART. IT IS NOT A COPY OF THE [employer] PROGRESS NOTE. CELINED
== END ==
LOC: M PAIN 15:00
PROVIDERS: ATTEND Nurse Practitioner Family
DX: G89.29 Other chronic pain (principal); M25.552 Pain in left hip; M25.551 Pain in right hip; R10.30 Lower abdominal pain, unspecified; K44.9 Diaphragmatic hernia without obstruction or gangrene; K59.00 Constipation, unspecified; Z88.1 Allergy status to other antibiotic agents; Z88.8 Allergy status to other drugs, medicaments and biological substances; Z79.899 Other long term (current) drug therapy

== ENCOUNTER → 2016-08-18 | Outpatient (REF) | payer BC ==
[2016-08-18 12:25] LABS: BASO % 0.5 % (0.0-1.0); EOS # 0.1 K/mm3 (0.0-0.50); EOS % 1.5 % (0.0-3.0); LARGE UNSTAINED CELL # 0.1 K/mm3 (0.0-0.4); LARGE UNSTAINED CELL % 1.4 % (0.0-4.0); LYMPH % 33.7 % (24.0-44.0); MEAN CORPUSCULAR HEMOGLOBIN 33.2 pg (27.0-33.0); MEAN CORPUSCULAR HGB CONC 34.1 g/dl (32.0-36.5); MEAN CORPUSCULAR VOLUME 97.2 fl (80.0-96.0); MONO # 0.3 K/mm3 (0.0-0.8); MONO % 5.1 % (0.0-5.0); NEUTROPHILS # 3.4 K/mm3 (1.8-7.7); NEUTROPHILS % 57.7 % (36.0-66.0); PLATELET COUNT, AUTOMATED 226 k/mm3 (150-450); RED CELL DISTRIBUTION WIDTH 12.5 % (11.5-14.5)
[2016-08-18 14:33] LABS: ERYTHROCYTE SEDIMENTATION RATE 8 mm/hr (0-20)
== END ==
LOC: M SFHCPLAZ 09:28
PROVIDERS: ATTEND Internal Medicine Infectious Disease
DX: A60.04 Herpesviral vulvovaginitis (principal)

== ENCOUNTER → 2016-09-22 | Outpatient (REF) | payer BC ==
[~2016-09-22] MED LIST changes: -MAGN250T5 PO; +MAGN250T6 PO
== END ==
LOC: M LAB REF 13:13
PROVIDERS: ATTEND Nurse Practitioner Family
DX: N76.89 Other specified inflammation of vagina and vulva (principal)

== ENCOUNTER → 2016-10-12 | Outpatient (CLI) | payer BC ==
--- NOTE | 2016-10-12 19:08 | REP ---
CHEST, TWO VIEWS: COMPARISON: 07/27/2014 There is no evidence of acute infiltrate. No pleural effusion is seen. The heart is normal in size. The mediastinal silhouette is unremarkable. The visualized osseous structures are intact. IMPRESSION: No acute pulmonary disease. Signed by Ron Zapata MD 10/13/2016 04:38 P
== END ==
LOC: M WUC 17:18
PROVIDERS: ATTEND Physician Assistant
DX: R05 Cough (principal)

== ENCOUNTER → 2016-11-26 | Outpatient (CLI) | payer BC ==
--- NOTE | 2016-11-26 16:13 | REP ---
PA and lateral chest: Comparison is 2016. The lung barlow are clear. The cardiac size is normal The shelly, mediastinum, and bony thorax are unremarkable. Impression: Negative PA and lateral chest. There is no interval change. Signed by Ron Street MD 11/26/2016 04:04 P
== END ==
LOC: M SMT 15:37
PROVIDERS: ATTEND Nurse Practitioner Adult Health
DX: R05 Cough (principal)

== ENCOUNTER → 2016-12-09 | Outpatient (CLI) | payer BC ==
--- NOTE | 2016-12-13 17:56 | SLEEPCENT ---
DATE OF PROCEDURE: 12/09/2016 ORDERED BY: Irma Bird Nocturnal polysomnography was performed for evaluation of sleep apnea syndrome symptoms. 8 hours and 3 minutes of data were reviewed. There were 394 minutes of sleep identified. Sleep latency was prolonged at 22minutes. Rapid eye movement (REM) latency was normal at 83 minutes. Sleep architecture was fairly with some fragmentation. Four REM periods were appreciated. The overall sleep efficiency was 83%. Patient's EKG showed a sinus rhythm with an average heart rate of 62 beats per minute. EEG showed normal wave forms for wake and sleep. There were 39 respiratory events identified of 10 seconds in duration or greater for an apnea-hypopnea index of 5.9. The events were more frequent but not exclusive to the supine posture, not related to sleep stage. Arousals from respiratory events occurred 3.4 times per hour. No significant oxygen desaturations were seen. The remaining measures of sleep physiology were normal. IMPRESSION: Mild positional obstructive sleep apnea syndrome (G47.33). RECOMMENDATIONS: Sleep position retraining for avoidance of the supine posture may be sufficient to address the patients problem. If sleep symptoms persist referral back to sleep disorder center for pressure therapy would be recommended.
== END ==
LOC: M SLEEP 19:39
PROVIDERS: ATTEND Nurse Practitioner Adult Health
DX: G47.30 Sleep apnea, unspecified (principal)

== ENCOUNTER 2017-02-06 15:36 | Emergency (ER) | payer BC ==
[~2017-02-06] VITALS: Ht 157.5 cm; Wt 77.1 kg
[2017-02-06] MEDS ORDERED: CYCL10TA PO (15:48)
[2017-02-06] MEDS ORDERED: ALEV220T26 PO (15:48)
[2017-02-06] MEDS ORDERED: predniSONE 20 MG TAB PO ONE (17:00)
[2017-02-06] MEDS ORDERED: KETOROLAC 60 MG/2 ML VIAL (J1885) IM ONE (17:00)
[2017-02-06] MEDS ORDERED: NORCO 5/325MG TABLET (BULK FOR ED) PO ONE (18:00)
[2017-02-06] MEDS ORDERED: OXYCODONE/APAP 5MG/325MG(BULK FOR ED) 1 TABLET PO ONE (18:00)
[2017-02-06] MEDS ORDERED: ROBA500T PO (18:01)
[2017-02-06] MEDS ORDERED: NORCOTAB PO (18:01)
[2017-02-06] MEDS ORDERED: MEDR4PAK PO (18:01)
[2017-02-06 18:08] VITALS: BP 149/86
== END 2017-02-06 18:19 | disposition home or self-care (01) ==
LOC: M ED 15:36
DX: M54.12 Radiculopathy, cervical region (principal); M79.7 Fibromyalgia; M54.2 Cervicalgia; M51.9 Unspecified thoracic, thoracolumbar and lumbosacral intervertebral disc disorder; F41.9 Anxiety disorder, unspecified; Z79.899 Other long term (current) drug therapy; Z91.030 Bee allergy status; Z88.0 Allergy status to penicillin; Z88.2 Allergy status to sulfonamides; Z88.8 Allergy status to other drugs, medicaments and biological substances
CPT/HCPCS: 96372; 99283; J1885

== ENCOUNTER → 2017-03-17 | Outpatient (REF) | payer BC ==
[2017-03-17 19:43] LABS: APPEARANCE, URINE CLEAR (CLEAR); BACTERIA, URINE AUTO NEGATIVE (NEGATIVE); BILIRUBIN, URINE AUTO NEGATIVE (NEGATIVE); BLOOD, URINE BLOOD NEGATIVE (NEGATIVE); COLOR, URINE YELLOW (YELLOW); GLUCOSE, URINE (UA) AUTO NEGATIVE (NEGATIVE); KETONE, URINE AUTO NEGATIVE (NEGATIVE); LEUKOCYTE ESTERASE, URINE AUTO NEGATIVE (NEGATIVE); NITRITE, URINE AUTO NEGATIVE (NEGATIVE); PROTEIN, URINE AUTO NEGATIVE (NEGATIVE); RBC, URINE AUTO 3 /HPF (0-3); SPECIFIC GRAVITY URINE AUTO 1.018 (1.002-1.035); SQUAMOUS EPITHELIAL CELL UR AU 0 /HPF (0-6); UROBILINOGEN, URINE AUTO 0.2 mg/dL (0.0-2.0); WBC, URINE AUTO 0 /HPF (0-3)
== END ==
LOC: M LAB REF 16:35
DX: N39.46 Mixed incontinence (principal)

== ENCOUNTER → 2017-04-07 | Outpatient (CLI) | payer BC ==
[2017-04-07 07:14] LABS: BASO % 0.6 % (0.0-1.0); EOS # 0.1 10^3/uL (0.0-0.50); EOS % 1.9 % (0.0-3.0); HEMOGLOBIN 14.6 g/dl (12.0-16.0); IMMATURE GRANULOCYTE % 0.2 % (0-3.0); LYMPH # 2.3 10^3/uL (1.5-4.5); LYMPH % 37.1 % (24.0-44.0); MEAN CORPUSCULAR HEMOGLOBIN 32.3 pg (27.0-33.0); MEAN CORPUSCULAR HGB CONC 33.2 g/dl (32.0-36.5); MEAN CORPUSCULAR VOLUME 97.3 fl (80.0-96.0); MONO # 0.5 10^3/uL (0.0-0.8); MONO % 7.8 % (0.0-5.0); NEUTROPHILS # 3.3 10^3/uL (1.8-7.7); NEUTROPHILS % 52.4 % (36.0-66.0); PLATELET COUNT, AUTOMATED 223 10^3/uL (150-450); RED BLOOD COUNT 4.52 10^6/uL (4.00-5.40); RED CELL DISTRIBUTION WIDTH 12.9 % (11.5-14.5); WHITE BLOOD COUNT 6.3 10^3/uL (4.0-10.0)
[2017-04-07 07:34] LABS: ERYTHROCYTE SEDIMENTATION RATE 6 mm/hr (0-20)
[2017-04-07 07:44] LABS: ALT/SGPT 19 U/L (12-78); ANION GAP 5 MEQ/L (8-16); BLOOD UREA NITROGEN 14 MG/DL (7-18); C REACTIVE PROTEIN QUANTITATIV < 0.30 MG/DL (0.00-0.30); CALCIUM LEVEL 8.7 MG/DL (8.5-10.1); CARBON DIOXIDE LEVEL 29 MEQ/L (21-32); CHLORIDE LEVEL 105 MEQ/L (98-107); CREATININE FOR GFR 0.64 MG/DL (0.55-1.30); GLOMERULAR FILTRATION RATE > 60.0 (>58); GLUCOSE, FASTING 90 MG/DL (70-100); MAGNESIUM LEVEL 2.5 MG/DL (1.8-2.4); POTASSIUM SERUM 4.1 MEQ/L (3.5-5.1); SODIUM LEVEL 139 MEQ/L (136-145)
[2017-04-07 10:34] LABS: TOTAL 25(OH) VITAMIN D 38.2 NG/ML (30.0-100.0)
[2017-04-07 14:15] LABS: CHOLESTEROL LEVEL 213 MG/DL (<200); CHOLESTEROL RISK RATIO 4.733 (<5); HDL CHOLESTEROL 45 MG/DL (>40); LDL CHOLESTEROL 125.6 MG/DL (<100); NON-HDL-C 168 MG/DL; TRIGLYCERIDES LEVEL 212 MG/DL (<150)
== END ==
LOC: M LAB 06:34
DX: F34.1 Dysthymic disorder (principal); M25.50 Pain in unspecified joint; R10.31 Right lower quadrant pain

== ENCOUNTER → 2017-04-18 | Outpatient (REF) | payer BC ==
[2017-04-18 18:28] LABS: APPEARANCE, URINE CLEAR (CLEAR); BACTERIA, URINE AUTO NEGATIVE (NEGATIVE); BILIRUBIN, URINE AUTO NEGATIVE (NEGATIVE); BLOOD, URINE BLOOD NEGATIVE (NEGATIVE); COLOR, URINE YELLOW (YELLOW); GLUCOSE, URINE (UA) AUTO NEGATIVE (NEGATIVE); KETONE, URINE AUTO NEGATIVE (NEGATIVE); LEUKOCYTE ESTERASE, URINE AUTO NEGATIVE (NEGATIVE); NITRITE, URINE AUTO NEGATIVE (NEGATIVE); PROTEIN, URINE AUTO NEGATIVE (NEGATIVE); RBC, URINE AUTO 1 /HPF (0-3); SPECIFIC GRAVITY URINE AUTO 1.004 (1.002-1.035); SQUAMOUS EPITHELIAL CELL UR AU 0 /HPF (0-6); UROBILINOGEN, URINE AUTO 0.2 mg/dL (0.0-2.0); WBC, URINE AUTO 0 /HPF (0-3)
== END ==
LOC: M LAB REF 17:07
DX: R39.89 Other symptoms and signs involving the genitourinary system (principal)
CPT/HCPCS: 81001

== ENCOUNTER 2017-04-22 16:03 | Emergency (ER) | payer BC ==
[2017-04-22 17:35] LABS: BASO # 0.1 10^3/uL (0.0-0.2); BASO % 0.7 % (0.0-1.0); EOS # 0.1 10^3/uL (0.0-0.50); EOS % 1.9 % (0.0-3.0); HEMATOCRIT 42.6 % (36.0-47.0); HEMOGLOBIN 14.3 g/dl (12.0-16.0); IMMATURE GRANULOCYTE % 0.3 % (0-3.0); LYMPH # 3.2 10^3/uL (1.5-4.5); LYMPH % 42.5 % (24.0-44.0); MEAN CORPUSCULAR HEMOGLOBIN 32.9 pg (27.0-33.0); MEAN CORPUSCULAR HGB CONC 33.6 g/dl (32.0-36.5); MEAN CORPUSCULAR VOLUME 97.9 fl (80.0-96.0); MONO # 0.6 10^3/uL (0.0-0.8); MONO % 7.4 % (0.0-5.0); NEUTROPHILS # 3.5 10^3/uL (1.8-7.7); NEUTROPHILS % 47.2 % (36.0-66.0); PLATELET COUNT, AUTOMATED 210 10^3/uL (150-450); RED BLOOD COUNT 4.35 10^6/uL (4.00-5.40); RED CELL DISTRIBUTION WIDTH 12.3 % (11.5-14.5); WHITE BLOOD COUNT 7.4 10^3/uL (4.0-10.0)
[2017-04-22 18:04] LABS: ALBUMIN/GLOBULIN RATIO 1.21 (1.00-1.93); ALKALINE PHOSPHATASE 50 U/L (45-117); ALT/SGPT 21 U/L (12-78); ANION GAP 6 MEQ/L (8-16); AST/SGOT 15 U/L (7-37); BILIRUBIN,DIRECT < 0.1 MG/DL (0.0-0.2); BILIRUBIN,TOTAL 0.4 MG/DL (0.2-1.0); BLOOD UREA NITROGEN 13 MG/DL (7-18); C REACTIVE PROTEIN QUANTITATIV < 0.30 MG/DL (0.00-0.30); CALCIUM LEVEL 8.6 MG/DL (8.5-10.1); CARBON DIOXIDE LEVEL 29 MEQ/L (21-32); CHLORIDE LEVEL 107 MEQ/L (98-107); CREATININE FOR GFR 0.65 MG/DL (0.55-1.30); GLOMERULAR FILTRATION RATE > 60.0 (>58); GLUCOSE, FASTING 109 MG/DL (70-100); SODIUM LEVEL 142 MEQ/L (136-145); TOTAL PROTEIN 7.3 GM/DL (6.4-8.2)
[2017-04-22 18:07] LABS: ERYTHROCYTE SEDIMENTATION RATE 7 mm/hr (0-20)
[2017-04-22] MEDS ORDERED: ISOVUE-370 76% 100ML VIAL (Q9967) As Ordered (18:09)
== END 2017-04-22 19:52 | disposition home or self-care (01) ==
LOC: M ED 16:03
DX: R06.02 Shortness of breath (principal); M94.0 Chondrocostal junction syndrome [Tietze]; B37.2 Candidiasis of skin and nail; G47.33 Obstructive sleep apnea (adult) (pediatric); F41.9 Anxiety disorder, unspecified; K21.9 Gastro-esophageal reflux disease without esophagitis; K44.9 Diaphragmatic hernia without obstruction or gangrene; Z82.49 Family history of ischemic heart disease and other diseases of the circulatory system; Z79.899 Other long term (current) drug therapy; Z88.0 Allergy status to penicillin; Z88.2 Allergy status to sulfonamides; Z88.8 Allergy status to other drugs, medicaments and biological substances
CPT/HCPCS: Q9967

== ENCOUNTER 2017-05-15 14:34 | Emergency (ER) | payer OTHER, BC ==
[2017-05-15] MEDS: ACETAMINOPHEN TAB 650MG DOSE (2X325MG) PO (15:18)
== END 2017-05-15 16:23 | disposition home or self-care (01) ==
LOC: M ED 14:34
DX: S60.221A Contusion of right hand, initial encounter (principal); W23.0XXA Caught, crushed, jammed, or pinched between moving objects, initial encounter; Y92.89 Other specified places as the place of occurrence of the external cause; K21.9 Gastro-esophageal reflux disease without esophagitis; M79.7 Fibromyalgia; G47.30 Sleep apnea, unspecified; F41.9 Anxiety disorder, unspecified; Z88.0 Allergy status to penicillin; Z88.2 Allergy status to sulfonamides; Z88.1 Allergy status to other antibiotic agents; Z91.030 Bee allergy status; Z79.899 Other long term (current) drug therapy
CPT/HCPCS: 73130

== ENCOUNTER → 2017-06-12 | Outpatient (REF) | payer BC | LOC: M LAB REF 09:14 | DX: R30.0 Dysuria (principal) | CPT/HCPCS: 87086 ==

== ENCOUNTER → 2017-06-16 | Outpatient (CLI) | payer BC | LOC: M WUC 17:07 | DX: R05 Cough (principal) | CPT/HCPCS: 71046 ==

== ENCOUNTER → 2017-12-21 | Outpatient (CLI) | payer MEDICAID ==
[2017-12-21 17:50] LABS: BASO # 0.1 10^3/uL (0.0-0.2); BASO % 0.6 % (0.0-1.0); EOS # 0.1 10^3/uL (0.0-0.50); EOS % 0.9 % (0.0-3.0); HEMATOCRIT 44.1 % (36.0-47.0); HEMOGLOBIN 14.9 g/dl (12.0-15.5); IMMATURE GRANULOCYTE % 0.1 % (0-3.0); LYMPH # 2.5 10^3/uL (1.5-4.5); LYMPH % 30.6 % (24.0-44.0); MEAN CORPUSCULAR HEMOGLOBIN 32.9 pg (27.0-33.0); MEAN CORPUSCULAR HGB CONC 33.8 g/dl (32.0-36.5); MEAN CORPUSCULAR VOLUME 97.4 fl (80.0-96.0); MONO # 0.7 10^3/uL (0.0-0.8); MONO % 8.2 % (0.0-5.0); NEUTROPHILS # 4.8 10^3/uL (1.8-7.7); NEUTROPHILS % 59.6 % (36.0-66.0); PLATELET COUNT, AUTOMATED 249 10^3/uL (150-450); RED BLOOD COUNT 4.53 10^6/uL (4.00-5.40)
[2017-12-21 18:08] LABS: FOLLICLE STIMULATING HORMONE 9.2 mIU/mL
[2017-12-21 18:08] LABS: LUTEINIZING HORMONE 7.2 mIU/mL
== END ==
LOC: M WUC 13:54
DX: N95.1 Menopausal and female climacteric states (principal)
CPT/HCPCS: 83001

== ENCOUNTER 2018-03-02 12:06 | Emergency (ER) | payer BC, MEDICAID, OTHER ==
[~2018-03-02] VITALS: Ht 157.5 cm; Wt 76.8 kg
[~2018-03-02 12:06] MED LIST changes: +ALEV220T26 PO; +CYCL10TA PO; +MEDR4PAK PO; +MELO7.5T7 PO; +NORCOTAB PO; +NYST1POW9 TOP; +OMEP40CA2 PO; +ROBA500T PO
[2018-03-02] MEDS ORDERED: KETOROLAC 60 MG/2 ML VIAL (J1885) IM ONE (12:45)
[2018-03-02 13:39] VITALS: BP 139/71
== END 2018-03-02 14:07 | disposition home or self-care (01) ==
LOC: M ED 12:06
DX: M54.12 Radiculopathy, cervical region (principal); M54.2 Cervicalgia; Z79.899 Other long term (current) drug therapy; Z91.030 Bee allergy status; Z88.1 Allergy status to other antibiotic agents; Z88.0 Allergy status to penicillin; Z88.2 Allergy status to sulfonamides
CPT/HCPCS: 96372; 99283; J1885

== ENCOUNTER → 2018-08-23 | Outpatient (CLI) | payer OTHER ==
[~2018-08-23] MED LIST changes: +HYDR-3715 PO; -NORCOTAB PO
--- NOTE | 2018-08-23 14:10 | REP ---
HIDA SCAN WITH GALLBLADDER EJECTION FRACTION: Following the intravenous administration of 6.6 millicuries technetium 99m mebrofenin, multiple images of the upper abdomen are performed every 5 minutes for a period of 1 hour. The gallbladder is visualized at 15-20 minutes post injection with no scintigraphic evidence of cholecystitis. There is biliary to bowel transit at the same time. At the 1-hour jassi 8 ounces of Ensure Enlive is ingested and further imaging performed for 1 hour. The gallbladder activity is measured and gallbladder ejection fraction is calculated to be 90%, which is normal. IMPRESSION: Normal gallbladder ejection fraction. Electronically Signed by Ron Zapata MD 08/23/2018 04:34 P
== END ==
LOC: M RAD 10:52
PROVIDERS: ATTEND Internal Medicine Gastroenterology
DX: R10.9 Unspecified abdominal pain (principal); K20.9 Esophagitis, unspecified; K44.9 Diaphragmatic hernia without obstruction or gangrene; R12 Heartburn; B37.81 Candidal esophagitis; Z86.010 Personal history of colon polyps
CPT/HCPCS: 78227; A9537; J2805

== ENCOUNTER 2018-10-03 07:21 | Day surgery (SDC) | payer OTHER ==
[~2018-10-03] VITALS: Ht 157.5 cm; Wt 72.6 kg
[~2018-10-03 07:21] MED LIST changes: +ACIDTAB3 PO; +ALL10TAB28 PO; +CALT1TAB PO; +D200CAP3 PO; +LR 1,000 ML IV ONE; +LevoFLOXacin IV 500 MG in APPROPRIATE DILUENT 1 EA IV ONE; +MELO15TA28 PO; +VITACAP8 PO
[2018-10-03] MEDS ORDERED: dexameTHASONE 4 MG/ML 1ML VIAL (J1100) As Ordered ONE (08:17)
[2018-10-03] MEDS ORDERED: PROPOFOL 200 MG/20 ML VIAL As Ordered ONE (08:17)
[2018-10-03] MEDS ORDERED: LIDOCAINE 2% INJ 100 MG/5 ML SDV (FOR ANES.) As Ordered ONE (08:17)
[2018-10-03] MEDS ORDERED: ROCURONIUM BROMIDE 50 MG/5 ML VIAL As Ordered ONE (08:17)
[2018-10-03] MEDS ORDERED: ONDANSETRON 4MG/2ML VIAL (J2405) As Ordered ONE (08:17)
[2018-10-03] MEDS ORDERED: fentaNYL 100 MCG/2 ML INJECTION (J3010) As Ordered ONE (08:21)
[2018-10-03] MEDS ORDERED: MIDAZOLAM INJ 2 MG/2 ML VIAL (J2250) As Ordered ONE (08:22)
[2018-10-03] MEDS ORDERED: BICITRA 30ML SOLN UDC As Ordered ONE (08:25)
[2018-10-03] MEDS ORDERED: BICITRA 30ML SOLN UDC PO ONE (08:30)
[2018-10-03] MEDS ORDERED: BUPIVACAINE/EPIN 0.25% 30 ML VIAL As Ordered ONE (08:48)
[2018-10-03] MEDS ORDERED: CONRAY-60 60% 50ML VIAL (Q9961) As Ordered ONE (08:48)
[2018-10-03] MEDS ORDERED: GLUCAGON FOR INJ 1 MG VIAL (J1610) As Ordered ONE (08:48)
[2018-10-03] MEDS ORDERED: GLYCOPYRROLATE INJ 0.2 MG/ML 2 ML VIAL As Ordered ONE (09:35)
[2018-10-03] MEDS ORDERED: ePHEDrine SULFATE 25 MG/5 ML(5MG/ML) SYRINGE As Ordered ONE (09:36)
[2018-10-03] MEDS ORDERED: ACETAMINOPHEN 1000MG 100ML IV BTL (OFIRMEV) (J0131 PER 10MG) As Ordered ONE (09:44)
[2018-10-03] MEDS ORDERED: KETOROLAC 60 MG/2 ML VIAL (J1885) As Ordered ONE (09:44)
--- NOTE | 2018-10-03 10:11 | RO ---
DATE OF PROCEDURE: 10/03/2018 PREOPERATIVE DIAGNOSIS: Symptomatic gallstones. POSTOPERATIVE DIAGNOSIS: Symptomatic gallstones. PROCEDURE: Laparoscopic cholecystectomy. SURGEON: Den Martinez MD STITCHER UTILITY: ANESTHESIA: General endotracheal anesthesia. ESTIMATED BLOOD LOSS: Minimal. FLUIDS: Crystalloid. DESCRIPTION OF PROCEDURE: The patient was brought to the operating room and was given general anesthesia. After adequate anesthesia and preoperative antibiotics were given, the patient was prepped and draped in the usual sterile fashion. Next, a supraumbilical incision was made with a skin knife. Blunt dissection was carried down to fascia. Veress needle placed into the abdominal cavity and insufflated to 15 mm of pressure. A dilating 10 mm trocar was placed at this time and under direct visualization an epigastric and two lateral trocars were placed. The patient's stomach was very distended and thus an NG tube/OG tube needed to be repositioned, which provided better relief of the gastric distension. In any case, the gallbladder was grasped, retracted superiorly. There were some adhesions of the neck of the gallbladder to the duodenum, which were taken down with hook cautery. Eventually, after mobilization of the gallbladder and placement of all the 5 mm trocars, the gallbladder was retracted superiorly. The peritoneum was taken off the neck of the gallbladder. An excellent window behind the neck of the gallbladder was created and what was noticed was there was an anterior cystic artery that after mobilization of this was able to be isolated quite nicely. It continued onto the gallbladder itself and thus I clipped this proximally and distally and transected it. Then the neck of the gallbladder was further dissected in this area, providing an excellent view of the posterior aspect of the neck of the gallbladder.. Evidence of the a step-off from the gallbladder neck to the cystic duct. Once this was readily identified circumferentially and seeing a nice window behind the neck of the gallbladder, the cystic duct was clipped proximally and distally and transected. The gallbladder was removed gallbladder bed using electrocautery, placed in an EndoCatch bag and brought out through the umbilicus. 0 Vicryl was used to close the fascia at the umbilicus. After the right upper quadrant was copiously irrigated until clear, all incisions were closed with 4-0 Vicryl. Steri-Strips and dry sterile dressing was applied. The patient was awakened, extubated, brought to recovery room awake, alert and hemodynamically stable. [facility]
[2018-10-03] MEDS ORDERED: NORCO, ANEXSIA 5/325MG TABLET (HYDROcodone/ACETAMINOPHEN) PO PRN (10:30)
[2018-10-03] MEDS ORDERED: KETOROLAC 30 MG/ML VIAL (J1885) IV PRN (10:30)
[2018-10-03] MEDS ORDERED: HYDROMORPHONE HCL 0.5 MG/ 0.5 ML SYRINGE (J1170 PER 1) IV PRN (10:30)
[2018-10-03] MEDS ORDERED: PROMETHAZINE INJ 25 MG/ML VIAL (J2550) IV PRN (10:30)
[2018-10-03] MEDS ORDERED: fentaNYL 100 MCG/2 ML INJECTION (J3010) IV PRN (10:30)
[2018-10-03] MEDS ORDERED: LR 1,000 ML IV SCH ×2 (10:30)
[2018-10-03] MEDS ORDERED: ONDANSETRON 4 MG TAB (S0181) PO PRN (10:30)
[2018-10-03] MEDS ORDERED: oxyCODONE 5MG TAB As Ordered ONE (12:05)
[2018-10-03] MEDS ORDERED: oxyCODONE 5MG TAB PO ONE (13:00)
[2018-10-03 13:10] VITALS: BP 134/70
== END 2018-10-03 13:19 | disposition home or self-care (01) ==
LOC: M SDC 07:21
PROVIDERS: ATTEND Surgery
DX: K80.10 Calculus of gallbladder with chronic cholecystitis without obstruction (principal); K21.9 Gastro-esophageal reflux disease without esophagitis; Z91.030 Bee allergy status; Z88.0 Allergy status to penicillin; Z88.2 Allergy status to sulfonamides; G47.30 Sleep apnea, unspecified
CPT/HCPCS: 47562; 88304; J0131; J1100; J1885; J1956; J2250; J2405; J3010

== ENCOUNTER → 2018-10-25 | Outpatient (CLI) | payer OTHER ==
[~2018-10-25] MED LIST changes: -ALL10TAB28 PO; +ALL10TAB29 PO; -LR 1,000 ML IV ONE; -LevoFLOXacin IV 500 MG in APPROPRIATE DILUENT 1 EA IV ONE; -OMEP40CA2 PO; +OMEP40CA97 PO
--- NOTE | 2018-10-25 08:45 | REP ---
Clinical: Right upper quadrant pain and tenderness. Technique: Real time torres scale ultrasound examination using curved array transducer. Findings: Liver and pancreas are normal in contour, size, echogenicity without focal hepatic or pancreatic lesion identified. Evidence for prior cholecystectomy. Common bile duct measures up to 6.4 mm diameter. Right kidney is normal in reniform shape without hydronephrosis and measures 10.6 x 5.9 x 4.0 cm. No ascites. Visualized abdominal aorta appears normal. Impression: 1. Evidence for prior cholecystectomy without biliary ductal dilatation. Electronically Signed by Jeremias Werner MD 10/25/2018 08:36 A
== END ==
LOC: M RAD 07:47
PROVIDERS: ATTEND Nurse Practitioner
DX: Z90.49 Acquired absence of other specified parts of digestive tract (principal)

== ENCOUNTER → 2018-11-20 | Outpatient (REF) | payer OTHER ==
[2018-11-20 18:22] LABS: APPEARANCE, URINE CLOUDY (CLEAR); BACTERIA, URINE AUTO NEGATIVE (NEGATIVE); BILIRUBIN, URINE AUTO NEGATIVE (NEGATIVE); BLOOD, URINE BLOOD NEGATIVE (NEGATIVE); COLOR, URINE AMBER (YELLOW); GLUCOSE, URINE (UA) AUTO NEGATIVE (NEGATIVE); KETONE, URINE AUTO NEGATIVE (NEGATIVE); LEUKOCYTE ESTERASE, URINE AUTO NEGATIVE (NEGATIVE); MUCUS, URINE SMALL (NEGATIVE); NITRITE, URINE AUTO NEGATIVE (NEGATIVE); PROTEIN, URINE AUTO NEGATIVE (NEGATIVE); RBC, URINE AUTO 3 /HPF (0-3); SPECIFIC GRAVITY URINE AUTO 1.026 (1.002-1.035); SQUAMOUS EPITHELIAL CELL UR AU 1 /HPF (0-6); UROBILINOGEN, URINE AUTO 0.2 mg/dL (0.0-2.0); WBC, URINE AUTO 0 /HPF (0-3)
== END ==
LOC: M SFHCPLAZ 16:58
PROVIDERS: ATTEND Nurse Practitioner Women's Health
DX: N13.4 Hydroureter (principal)

== ENCOUNTER → 2018-11-20 | Outpatient (CLI) | payer OTHER ==
[~2018-11-20] MED LIST changes: +OMEP40CA2 PO; -OMEP40CA97 PO
[2018-11-20 17:31] LABS: BLOOD UREA NITROGEN 15 MG/DL (7-18); CALCIUM LEVEL 9.3 MG/DL (8.5-10.1); CARBON DIOXIDE LEVEL 31 MEQ/L (21-32); CHLORIDE LEVEL 103 MEQ/L (98-107); CREATININE FOR GFR 0.71 MG/DL (0.55-1.30); GLOMERULAR FILTRATION RATE > 60.0 (>51); GLUCOSE, FASTING 81 MG/DL (70-100); POTASSIUM SERUM 4.4 MEQ/L (3.5-5.1); SODIUM LEVEL 139 MEQ/L (136-145)
== END ==
LOC: M SMT 15:45
PROVIDERS: ATTEND Nurse Practitioner Women's Health
DX: N13.4 Hydroureter (principal)

== ENCOUNTER 2019-09-17 10:44 | Emergency (ER) | payer OTHER ==
[~2019-09-17 10:44] MED LIST changes: -ALL10TAB29 PO; +CETI-24 PO; +CYCL-707 PO; -CYCL10TA PO; -OMEP40CA2 PO; +OMEP40CA97 PO
[2019-09-18] MEDS ORDERED: ACETAMINOPHEN 500 MG TAB As Ordered ONE (08:51)
[2019-09-18] MEDS ORDERED: ACETAMINOPHEN 500 MG TAB ONE (08:51)
[2019-10-14 18:54] LABS: ALBUMIN 4.2 GM/DL (3.2-5.2); ALT/SGPT 37 U/L (12-78); BILIRUBIN,DIRECT 0.1 MG/DL (0.0-0.2); BILIRUBIN,TOTAL 0.8 MG/DL (0.2-1.0); BLOOD UREA NITROGEN 9 MG/DL (7-18); CALCIUM LEVEL 9.1 MG/DL (8.5-10.1); CARBON DIOXIDE LEVEL 27 MEQ/L (21-32); CHLORIDE LEVEL 105 MEQ/L (98-107); CREATININE FOR GFR 0.73 MG/DL (0.55-1.30); GLOMERULAR FILTRATION RATE > 60.0 (>51); GLUCOSE, FASTING 85 MG/DL (70-100); LIPASE 104 U/L (73-393); POTASSIUM SERUM 3.6 MEQ/L (3.5-5.1); SODIUM LEVEL 140 MEQ/L (136-145); TOTAL PROTEIN 7.8 GM/DL (6.4-8.2); TROPONIN I < 0.02 NG/ML (< 0.10)
[2019-10-14 18:58] LABS: VITAMIN B12 LEVEL 1188 PG/ML (247-911)
[2019-10-21 14:05] LABS: APPEARANCE, URINE CLEAR (CLEAR); BACTERIA, URINE AUTO NEGATIVE (NEGATIVE); BILIRUBIN, URINE AUTO NEGATIVE (NEGATIVE); BLOOD, URINE BLOOD NEGATIVE (NEGATIVE); COLOR, URINE YELLOW (YELLOW); GLUCOSE, URINE (UA) AUTO NEGATIVE (NEGATIVE); KETONE, URINE AUTO 1+ mg/dL (NEGATIVE); LEUKOCYTE ESTERASE, URINE AUTO NEGATIVE (NEGATIVE); MUCUS, URINE SMALL (NEGATIVE); NITRITE, URINE AUTO NEGATIVE (NEGATIVE); PROTEIN, URINE AUTO NEGATIVE (NEGATIVE); RBC, URINE AUTO 1 /HPF (0-3); SPECIFIC GRAVITY URINE AUTO 1.005 (1.002-1.035); SQUAMOUS EPITHELIAL CELL UR AU 0 /HPF (0-6); UROBILINOGEN, URINE AUTO 0.2 mg/dL (0.0-2.0); WBC, URINE AUTO 0 /HPF (0-3)
[2019-10-21 14:11] LABS: BASO % 0.3 % (0.0-1.0); EOS # 0.1 10^3/uL (0.0-0.5); EOS % 0.8 % (0.0-3.0); HEMOGLOBIN 15.2 g/dl (12.0-15.5); LYMPH # 2.3 10^3/uL (1.5-5.0); LYMPH % 24.7 % (24.0-44.0); MEAN CORPUSCULAR HEMOGLOBIN 31.1 pg (27.0-33.0); MEAN CORPUSCULAR VOLUME 94.3 fl (80.0-96.0); MONO # 0.6 10^3/uL (0.0-0.8); MONO % 6.4 % (0.0-5.0); NEUTROPHILS # 6.2 10^3/uL (1.5-8.5); NEUTROPHILS % 67.6 % (36.0-66.0); PLATELET COUNT, AUTOMATED 207 10^3/uL (150-450); RED BLOOD COUNT 4.88 10^6/uL (4.00-5.40); WHITE BLOOD COUNT 9.1 10^3/uL (4.0-10.0)
--- NOTE | 2019-11-02 11:52 | ECGEPIP ---
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
== END 2019-09-17 21:55 | disposition home or self-care (01) ==
LOC: M ED 10:44
DX: R11.2 Nausea with vomiting, unspecified (principal); R42 Dizziness and giddiness; Z77.098 Contact with and (suspected) exposure to other hazardous, chiefly nonmedicinal, chemicals; R30.0 Dysuria; J45.909 Unspecified asthma, uncomplicated; I10 Essential (primary) hypertension; E78.5 Hyperlipidemia, unspecified; K21.9 Gastro-esophageal reflux disease without esophagitis; M79.7 Fibromyalgia; Z79.899 Other long term (current) drug therapy; Z88.2 Allergy status to sulfonamides; Z88.1 Allergy status to other antibiotic agents

== ENCOUNTER → 2019-09-24 | Outpatient (REF) | payer OTHER ==
[~2019-09-24] MED LIST changes: +B COTAB PO; +D3 H2000 PO; +DOXE10CA PO; +FAMO20TA PO; +FLON1SPR NARES; +LEVAINH INH; +MOBI4TAB PO
== END ==
LOC: M LAB REF 08:42
PROVIDERS: ATTEND Internal Medicine
DX: T58.9 Toxic effect of carbon monoxide from unspecified source (principal)

== ENCOUNTER 2019-12-05 13:31 | Observation (INO) | payer OTHER ==
[~2019-12-05] VITALS: Ht 157.5 cm; Wt 80.6 kg
[~2019-12-05 13:31] MED LIST changes: -B COTAB PO; -D3 H2000 PO; -DOXE10CA PO; -FAMO20TA PO; -FLON1SPR NARES; -LEVAINH INH; -MOBI4TAB PO
[2019-12-05] MEDS ORDERED: FLON1SPR NARES (13:41)
--- NOTE | 2019-12-05 15:09 | REPVR ---
PROCEDURE INFORMATION: Exam: CT Head Without Contrast Exam date and time: 12/05/2019 2:54 PM Age: 53 years old Clinical indication: Dizziness; Additional info: CVA - nursing interventions must not delay CT TECHNIQUE: Imaging protocol: Computed tomography of the head without contrast. Radiation optimization: All CT scans at this facility use at least one of these dose optimization techniques: automated exposure control; mA and/or kV adjustment per patient size (includes targeted exams where dose is matched to clinical indication); or iterative reconstruction. Other technique: STROKE PROTOCOL was implemented. COMPARISON: No relevant prior studies available. FINDINGS: Brain: There is no acute intracranial hemorrhage. No extra-axial fluid collection. No evidence of acute infarct. Zapata white differentiation is intact. There is no evidence of mass. There is no mass effect or midline shift. Cerebral ventricles: No ventriculomegaly. Bones/joints: No acute fracture. Paranasal sinuses: Visualized sinuses are unremarkable. No fluid levels. Mastoid air cells: No significant mastoid effusion. Soft tissues: Unremarkable as visualized. IMPRESSION: No evidence of acute intracranial abnormality. No evidence of acute infarct. No acute hemorrhage. ASSESSMENT: ASPECTS ([place] Stroke Program Early CT Score) is 10. Electronically signed by: Kathi Martin On 12/05/2019 15:09:17 PM
[2019-12-05 15:32] LABS: BASO % 0.6 % (0.0-1.0); EOS # 0.1 10^3/uL (0.0-0.5); EOS % 0.7 % (0.0-3.0); HEMATOCRIT 45.5 % (36.0-47.0); HEMOGLOBIN 14.9 g/dl (12.0-15.5); LYMPH # 2.2 10^3/uL (1.5-5.0); LYMPH % 29.9 % (24.0-44.0); MEAN CORPUSCULAR HGB CONC 32.7 g/dl (32.0-36.5); MEAN CORPUSCULAR VOLUME 94.6 fl (80.0-96.0); MONO # 0.5 10^3/uL (0.0-0.8); MONO % 7.3 % (0.0-5.0); NEUTROPHILS # 4.4 10^3/uL (1.5-8.5); NEUTROPHILS % 61.2 % (36.0-66.0); PLATELET COUNT, AUTOMATED 221 10^3/uL (150-450); RED BLOOD COUNT 4.81 10^6/uL (4.00-5.40); WHITE BLOOD COUNT 7.2 10^3/uL (4.0-10.0)
--- NOTE | 2019-12-05 15:37 | REPVR ---
PROCEDURE INFORMATION: Exam: XR Chest, 1 View Exam date and time: 12/05/2019 2:44 PM Age: 53 years old Clinical indication: Other: CVA TECHNIQUE: Imaging protocol: XR of the chest Views: 1 view. COMPARISON: CR Chest, 2 view PA, Lat 09/17/2019 6:39 PM FINDINGS: Lungs: No consolidation. Pleural space: No significant visible pleural effusion. No pneumothorax. Heart/Mediastinum: No significant cardiomegaly. Bones/joints: No acute finding. IMPRESSION: No acute cardiopulmonary finding. Electronically signed by: Kathi Martin On 12/05/2019 15:37:30 PM
[2019-12-05 15:43] LABS: INR 0.92; PROTHROMBIN TIME 12.5 SECONDS (12.5-14.3)
[2019-12-05 15:44] LABS: PARTIAL THROMBOPLASTIN TIME 24.4 SECONDS (24.2-38.5)
[2019-12-05 15:57] LABS: BLOOD UREA NITROGEN 12 MG/DL (7-18); CALCIUM LEVEL 9.5 MG/DL (8.5-10.1); CARBON DIOXIDE LEVEL 30 MEQ/L (21-32); CHLORIDE LEVEL 107 MEQ/L (98-107); CK-MB VALUE MASS < 1.0 NG/ML (<3.6); CPK CREATINE PHOSPHOKINASE 52 U/L (26-192); CREATININE FOR GFR 0.78 MG/DL (0.55-1.30); GLOMERULAR FILTRATION RATE > 60.0 (>51); GLUCOSE, FASTING 99 MG/DL (70-100); MB/CK RELATIVE INDEX 1.92 (< OR =4); POTASSIUM SERUM 3.8 MEQ/L (3.5-5.1); SODIUM LEVEL 141 MEQ/L (136-145); TROPONIN I < 0.02 NG/ML (< 0.10)
[2019-12-05] MEDS ORDERED: KETOROLAC 30 MG/ML 1ML VIAL IV ONE (16:45)
--- NOTE | 2019-12-05 16:58 | HPEPDOC ---
[facility] Medical History & Physical Date of Admission Dec 05, 2019 Date of Service: Dec 05, 2019 History and Physical CHIEF COMPLAINT: dizziness/headaches HISTORY OF PRESENT ILLNESS: 53 yo female presents for several week history of intermittent dizziness. She states the episodes can last anywhere from 30 seconds to 30 minutes. She states they can happen anywhere from several times a day, to once every two days. She states however that moving her head can sometimes trigger her dizzy episodes. She was not very certain or clear regarding her symptoms. She also noted headaches, with no further specific details. She also described intermittent sore throat, also for the last few weeks. She states she did have facial numbness on admission, but has since resolved. She denies chest pain, shortness of breath, sick contacts, fevers/chills/nausea/vomiting/diarrhea. 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 She states she has a history of hypoglycemia, but cannot recall ever checking her blood sugar, but states she knows that has low blood sugars. Denies alcohol abuse, illicit drug use, or nicotine use. 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 NICKERSON ALLERGIES: Please see below. REVIEW OF SYSTEMS: Negative except as per HPI HOME MEDICATIONS: Please see below. PHYSICAL EXAMINATION: VITAL SIGNS: See below General: anxious, lying comfortably in bed HEENT: NC/AT, EOMI Lungs: CTA B/L Heart: +S1S2, RRR Abd: soft, NT, +BS Ext: no edema LABORATORY DATA: See below. MICROBIOLOGY: Please see below. ASSESSMENT/PLAN: 53 yo female for multiple complaints including sore throat, facial numbness, and dizziness. #dizziness - possibly hypoglycemia? q6h FS - states this has been discussed with her PCP - telemetry monitoring, check BCx - MRI/MRA pending - rule out CVA - check orthostatics - PT/OT - BPV? Vital Signs Vital Signs Date Time Temp Pulse Resp B/P (MAP) Pulse Ox O2 Delivery O2 Flow Rate FiO2 12/05/19 16:52 70 18 97 Room Air 12/05/19 16:30 160/87 (111) 12/05/19 14:33 98.0 Laboratory Data Labs 24H Laboratory Tests 2 12/05/19 15:06: Immature Granulocyte % (Auto) 0.3, Neutrophils (%) (Auto) 61.2, Lymphocytes (%) (Auto) 29.9, Monocytes (%) (Auto) 7.3H, Eosinophils (%) (Auto) 0.7, Basophils (%) (Auto) 0.6, Neutrophils # (Auto) 4.4, Lymphocytes # (Auto) 2.2, Monocytes # (Auto) 0.5, Eosinophils # (Auto) 0.1, Basophils # (Auto) 0.0, Nucleated Red Blood Cells % (auto) 0.0, Prothrombin Time 12.5, Prothromb Time International Ratio 0.92, Activated Partial Thromboplast Time 24.4L, Anion Gap 4L, Glomerular Filtration Rate > 60.0, Calcium Level 9.5, Total Creatine Kinase 52, Creatine K inase MB < 1.0, Creatine Kinase MB Relative Index 1.92, Troponin I < 0.02 CBC/BMP Laboratory Tests 12/05/19 15:06 Microbiology Microbiology 12/05/19 Group A Streptococcus Screen (GÉNESIS), Received Pending Home Medications Scheduled B-Complex with Vitamin C (Vitamin B-Complex with Vit C) 1 Each Tablet, 1 TAB PO DAILY Cetirizine HCl (Cetirizine HCl) 10 Mg Tablet, 10 MG PO QHS Cholecalciferol (Vitamin D3) (Vitamin D3) 50 Mcg Capsule, 2,000 UNITS PO DAILY Doxepin HCl (Doxepin HCl) 10 Mg Capsule, 10 MG PO QHS Famotidine (Famotidine) 20 Mg Tablet, 20 MG PO DAILY Fluticasone Propionate (Flonase Allergy Relief) 9.9 Ml [place].susp, 2 SPRAY NARES DAILY L. Acidophilus/Pectin, Davidson (Acidophilus Caplet) 1 Each Tablet, 1 TAB PO DAILY Scheduled PRN Cyclobenzaprine HCl (Cyclobenzaprine HCl) 10 Mg Tablet, 10 MG PO TID PRN for MUSCLE SPASMS Levalbuterol Hydrochloride (Xopenex Hfa) 15 Gm Hfa.aer.ad, 2 PUFF INH Q4H PRN for SOB/WHEEZING Meloxicam (Mobic) 7.5 Mg Tablet, 7.5 MG PO DAILY PRN for PAIN WITH FOOD Allergies Coded Allergies: Penicillins (Verified Allergy, Unknown, rash, itching, 09/18/18) Sulfa (Sulfonamide Antibiotics) (Verified Allergy, Unknown, rash, 09/18/18) amoxicillin (Verified Allergy, Unknown, rash and itching, 09/18/18) bee venom protein (honey bee) (Verified Allergy, Unknown, anaphylaxis, 09/18/18) clavulanic acid (Verified Allergy, Unknown, rash and itching, 09/18/18) metronidazole (Verified Allergy, Unknown, shortness of breath and rash, 09/18/18) A-FIB/CHADSVASC A-FIB History Current/History of A-Fib/PAF?: No PANFILO GRIJALVA MD Dec 05, 2019 16:58
[2019-12-05] MEDS ORDERED: LEVAINH INH (17:49)
[2019-12-05] MEDS ORDERED: D3 H2000 PO (17:49)
[2019-12-05] MEDS ORDERED: MOBI4TAB PO (17:49)
[2019-12-05] MEDS ORDERED: DOXE10CA PO (17:49)
[2019-12-05] MEDS ORDERED: CYCL-707 PO (17:49)
[2019-12-05] MEDS ORDERED: FAMO20TA PO (17:49)
[2019-12-05] MEDS ORDERED: B COTAB PO (17:49)
[2019-12-05] MEDS ORDERED: DEXTROSE 50% 50 ML SYRINGE IV PRN (18:00)
[2019-12-05] MEDS ORDERED: GLUCOSE 4GM CHEW TABLET PO PRN (18:00)
[2019-12-05] MEDS ORDERED: GLUCAGON INJ 1MG VIAL SC PRN (18:00)
[2019-12-05] MEDS ORDERED: LEVALBUTEROL HFA 45MCG/ACT 15 GM INHALER INH PRN (18:00)
--- NOTE | 2019-12-05 19:08 | REPVR ---
PROCEDURE INFORMATION: Exam: MR Head Without Contrast Exam date and time: 12/05/2019 6:36 PM Age: 53 years old Clinical indication: Dizziness; Additional info: CVA TECHNIQUE: Imaging protocol: MR of the head without contrast. COMPARISON: CT Head without contrast 12/05/2019 2:46 PM FINDINGS: Ventricles demonstrate normal size and configuration. Major vascular flow voids at the skull base are preserved. No extra-axial fluid collection. No midline shift or intracranial mass effect. No pathologic white-matter signal or cerebral edema. No diffusion restriction. Visualized paranasal sinuses and mastoid air cells are clear. IMPRESSION: No acute intracranial abnormality. Electronically signed by: Avi Lam On 12/05/2019 19:08:19 PM
--- NOTE | 2019-12-05 19:11 | REPVR ---
PROCEDURE INFORMATION: Exam: MR Angiogram Head Without Contrast, Arteries Exam date and time: 12/05/2019 6:36 PM Age: 53 years old Clinical indication: Vertigo; Additional info: CVA TECHNIQUE: Imaging protocol: MR angiogram head without contrast. Exam focused on the arteries. COMPARISON: CT Head without contrast 12/05/2019 2:46 PM FINDINGS: ANTERIOR CIRCULATION: Right internal carotid artery: Intracranial segment is patent with no significant stenosis. No aneurysm. Right middle cerebral artery: No occlusion or significant stenosis. No aneurysm. Right anterior cerebral artery: No occlusion or significant stenosis. No aneurysm. Left internal carotid artery: Intracranial segment is patent with no significant stenosis. No aneurysm. Left middle cerebral artery: No occlusion or significant stenosis. No aneurysm. Left anterior cerebral artery: Hypoplastic left A1 segment. POSTERIOR CIRCULATION: Right vertebral artery: No occlusion or significant stenosis. No aneurysm. Left vertebral artery: No occlusion or significant stenosis. No aneurysm. Basilar artery: No occlusion or significant stenosis. No aneurysm. Right posterior cerebral artery: Infundibulum at the origin of the right posterior communicating artery. Left posterior cerebral artery: No occlusion or significant stenosis. No aneurysm. IMPRESSION: No hemodynamically significant stenosis or large vessel occlusion. Electronically signed by: Avi Lam On 12/05/2019 19:10:51 PM
[2019-12-05] MEDS ORDERED: DOXEPIN 10 MG CAP PO SCH (21:00)
[2019-12-05] MEDS ORDERED: CETIRIZINE (ZyrTEC) 10 MG TAB PO SCH (21:00)
[2019-12-05 22:00] VITALS: BP 161/96
[2019-12-05] MEDS: CYCLOBENZAPRINE 10MG TABLET PO PRN (23:15)
[2019-12-05] MEDS: MELOXICAM (MOBIC) 7.5 MG TAB PO PRN (23:15)
[2019-12-06 06:00] VITALS: BP 130/72
[2019-12-06 06:39] LABS: HEMOGLOBIN 14.2 g/dl (12.0-15.5); MEAN CORPUSCULAR HEMOGLOBIN 30.7 pg (27.0-33.0); MEAN CORPUSCULAR HGB CONC 32.3 g/dl (32.0-36.5); MEAN CORPUSCULAR VOLUME 95.2 fl (80.0-96.0); PLATELET COUNT, AUTOMATED 202 10^3/uL (150-450); RED BLOOD COUNT 4.62 10^6/uL (4.00-5.40); WHITE BLOOD COUNT 6.5 10^3/uL (4.0-10.0)
[2019-12-06 07:06] LABS: BLOOD UREA NITROGEN 13 MG/DL (7-18); CALCIUM LEVEL 8.8 MG/DL (8.5-10.1); CARBON DIOXIDE LEVEL 29 MEQ/L (21-32); CHLORIDE LEVEL 108 MEQ/L (98-107); CREATININE FOR GFR 0.74 MG/DL (0.55-1.30); GLOMERULAR FILTRATION RATE > 60.0 (>51); GLUCOSE, FASTING 86 MG/DL (70-100); SODIUM LEVEL 142 MEQ/L (136-145)
[2019-12-06 07:42] LABS: C REACTIVE PROTEIN QUANTITATIV < 0.30 MG/DL (0.00-0.30)
[2019-12-06 08:03] LABS: ERYTHROCYTE SEDIMENTATION RATE 5 mm/hr (0-30)
[2019-12-06] MEDS ORDERED: FAMOTIDINE 20 MG TAB PO SCH (09:00)
[2019-12-06] MEDS ORDERED: FLUTICASONE PROP 0.05% NASAL SPRAY 16 GM (FLONASE) NARES SCH (09:00)
[2019-12-06] MEDS ORDERED: HEPARIN SOD (PORCINE) 5000UNITS/ML 1ML VIAL/SYRINGE SC SCH (09:00)
[2019-12-06] MEDS ORDERED: VITAMIN B COMPLEX/VIT C CAP PO SCH (09:00)
[2019-12-06] MEDS: MELOXICAM (MOBIC) 7.5 MG TAB PO PRN (09:37)
[2019-12-06] MEDS: CYCLOBENZAPRINE 10MG TABLET PO PRN (09:37)
--- NOTE | 2019-12-06 11:29 | DS.PDOC ---
Discharge Summary General Date of Admission Dec 05, 2019 at 13:32 Date of Discharge 12/06/19 Primary Care Physician: Natasha Farfan Discharge Summary PROCEDURES PERFORMED DURING STAY: [None]. 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 NICKERSON COMPLICATIONS/CHIEF COMPLAINT: Cervical Radicular Pain. HISTORY OF PRESENT ILLNESS: 53 yo female presents for several week history of intermittent dizziness. She states the episodes can last anywhere from 30 seconds to 30 minutes. She states they can happen anywhere from several times a day, to once every two days. She states however that moving her head can sometimes trigger her dizzy episodes. She was not very certain or clear regarding her symptoms. She also noted headaches, with no further specific details. She also described intermittent sore throat, also for the last few week s. She states she did have facial numbness on admission, but has since resolved. She denies chest pain, shortness of breath, sick contacts, fevers/chills/nausea/vomiting/diarrhea. 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 She states she has a history of hypoglycemia, but cannot recall ever checking her blood sugar, but states she knows that has low blood sugars. Denies alcohol abuse, illicit drug use, or nicotine use. HOSPITAL COURSE: Patient was admitted for further evaluation and treatment. MRI and MRA were obtained which were unrevealing. Laboratory testing was also unrevealing. Patient was seen and evaluated by physical and occupational therapy with recommendations for outpatient follow-up. Her presenting symptoms, hospital course, plan of care were discussed extensively with her primary care provider and she will follow-up with her primary care provider, Dr. Farfan. Agreed for ENT c/s for possible Meniere's disease. Implemented lifestyle changes as initial treatments. DISCHARGE MEDICATIONS: Please see below. ALLERGIES: Please see below. PHYSICAL EXAMINATION ON DISCHARGE: VITAL SIGNS: See below General: anxious, lying comfortably in bed HEENT: NC/AT, EOMI Lungs: CTA B/L Heart: +S1S2, RRR Abd: soft, NT, +BS Ext: no edema LABORATORY DATA: Please see below. ACTIVITY: [As tolerated]. DIET: Low-salt diet, avoid caffeine, avoid alcohol DISCHARGE INSTRUCTIONS: 1. Follow-up primary care provider in 3-5 days 2. ENT consultation in 3-10 days DISCHARGE CONDITION: [Stable]. TIME SPENT ON DISCHARGE: 35 minutes. Vital Signs/I&Os Vital Signs Date Time Temp Pulse Resp B/P (MAP) Pulse Ox O2 Delivery O2 Flow Rate FiO2 12/06/19 06:00 97.9 75 18 130/72 (91) 98 Room Air I&O- Last 24 Hours up to 6 AM 12/06/19 06:00 Intake Total 0 ml Output Total 300 ml Balance -300 ml Laboratory Data Labs 24H Laboratory Tests 2 12/05/19 15:06: Immature Granulocyte % (Auto) 0.3, Neutrophils (%) (Auto) 61.2, Lymphocytes (%) (Auto) 29.9, Monocytes (%) (Auto) 7.3H, Eosinophils (%) (Auto) 0.7, Basophils (%) (Auto) 0.6, Neutrophils # (Auto) 4.4, Lymphocytes # (Auto) 2.2, Monocytes # (Auto) 0.5, Eosinophils # (Auto) 0.1, Basophils # (Auto) 0.0, Nucleated Red Blood Cells % (auto) 0.0, Prothrombin Time 12.5, Prothromb Time International R atio 0.92, Activated Partial Thromboplast Time 24.4L, Anion Gap 4L, Glomerular Filtration Rate > 60.0, Calcium Level 9.5, Total Creatine Kinase 52, Creatine Kinase MB < 1.0, Creatine Kinase MB Relative Index 1.92, Troponin I < 0.02 12/05/19 22:46: Bedside Glucose (Misc Panel) 90 12/06/19 06:16: Nucleated Red Blood Cells % (auto) 0.0, Anion Gap 5L, Glomerular Filtration Rate > 60.0, Calcium Level 8.8, Erythrocyte Sedimentation Rate 5, C-Reactive Protein, Quantitative < 0.30 12/06/19 10:09: CBC/BMP Laboratory Tests 12/05/19 15:06 12/06/19 06:16 FSBS Laboratory Tests Test 12/05/19 22:46 Range/Units Bedside Glucose (Misc Panel) 90 70-105 MG/DL Microbiology Microbiology 12/05/19 Blood Culture, Received Pending 12/05/19 Blood Culture, Received Pending 12/05/19 Group A Streptococcus Screen (GÉNESIS) - Final, Complete Discharge Medications Scheduled B-Complex with Vitamin C (Vitamin B-Complex with Vit C) 1 Each Tablet, 1 TAB PO DAILY, (Reported) Cetirizine HCl (Cetirizine HCl) 10 Mg Tablet, 10 MG PO QHS, (Reported) Cholecalciferol (Vitamin D3) (Vitamin D3) 50 Mcg Capsule, 2,000 UNITS PO DAILY, (Reported) Doxepin HCl (Doxepin HCl) 10 Mg Capsule, 10 MG PO QHS, (Reported) Famotidine (Famotidine) 20 Mg Tablet, 20 MG PO DAILY, (Reported) Fluticasone Propionate (Flonase Allergy Relief) 9.9 Ml [place].susp, 2 SPRAY NARES DAILY, (Reported) L. Acidophilus/Pectin, [place] (Acidophilus [place]) 1 Each Tablet, 1 TAB PO DIXIE LY, (Reported) Scheduled PRN Cyclobenzaprine HCl (Cyclobenzaprine HCl) 10 Mg Tablet, 10 MG PO TID PRN for MUSCLE SPASMS, (Reported) Levalbuterol Hydrochloride (Xopenex Hfa) 15 Gm Hfa.aer.ad, 2 PUFF INH Q4H PRN for SOB/WHEEZING, (Reported) Meloxicam (Mobic) 7.5 Mg Tablet, 7.5 MG PO DAILY PRN for PAIN, (Reported) WITH FOOD Allergies Coded Allergies: Penicillins (Verified Allergy, Unknown, rash, itching, 09/18/18) Sulfa (Sulfonamide Antibiotics) (Verified Allergy, Unknown, rash, 09/18/18) amoxicillin (Verified Allergy, Unknown, rash and itching, 09/18/18) bee venom protein (honey bee) (Verified Allergy, Unknown, anaphylaxis, 09/18/18) clavulanic acid (Verified Allergy, Unknown, rash and itching, 09/18/18) metronidazole (Verified Allergy, Unknown, shortness of breath and rash, 09/18/18) PANFILO GRIJALVA MD Dec 06, 2019 11:29
[2019-12-06 14:00] VITALS: BP 153/89
--- NOTE | 2019-12-06 19:11 | ECGEPIP ---
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
[2019-12-07 12:07] LABS: ANTINUCLEAR ANTIBODIES DIRECT Negative (Negative)
== END 2019-12-06 15:05 | disposition home or self-care (01) ==
LOC: M ED 13:31 → M ED INP 13:32 → M MS5PR 22:50
PROVIDERS: ADMIT Internal Medicine; ATTEND Internal Medicine
DX: M50.21 Other cervical disc displacement, high cervical region (principal); R42 Dizziness and giddiness; Z91.19 Patient's noncompliance with other medical treatment and regimen; F41.9 Anxiety disorder, unspecified; K44.9 Diaphragmatic hernia without obstruction or gangrene; M25.78 Osteophyte, vertebrae; K58.8 Other irritable bowel syndrome; Z79.899 Other long term (current) drug therapy; Z88.0 Allergy status to penicillin; Z88.2 Allergy status to sulfonamides; Z88.1 Allergy status to other antibiotic agents; Z91.030 Bee allergy status
CPT/HCPCS: 36415; 70450; 70544; 70551; 71045; 80048; 82550; 82553; 85025; 85027; 85610; 85652; 85730; 86038; 86140; 86850; 86900; 86901; 87040; 87880; 93005; 93041; 94760; 96372; 96374; 97112; 97116; 97161; 99285; J1644; J1885

== ENCOUNTER 2019-12-23 18:39 | Emergency (ER) | payer OTHER ==
[~2019-12-23] VITALS: Ht 157.5 cm; Wt 79.6 kg
[~2019-12-23 18:39] MED LIST changes: +B COTAB PO; +D3 H2000 PO; +DOXE10CA PO; +FAMO20TA PO; +FLON1SPR NARES; +LEVAINH INH; +MOBI4TAB PO
[2019-12-23] MEDS ORDERED: NS 1,000 ML IV SCH (19:15)
[2019-12-23] MEDS ORDERED: ASPIRIN 81 MG CHEW TABLET PO ONE (19:15)
--- NOTE | 2019-12-23 19:44 | REP ---
INDICATION: CHEST PAIN. COMPARISON: December 05, 2019. TECHNIQUE: Upright AP portable chest radiograph. FINDINGS: Monitoring electrodes are seen. The lungs are well inflated and free of infiltrate. Pleural angles are sharp. Cardiomediastinal silhouette is unremarkable and unchanged. Pulmonary vasculature is not increased. No significant bony abnormality. IMPRESSION: No active disease. <Electronically signed by Ivan Dos Santos > 12/23/191940
[2019-12-23 19:57] LABS: BASO % 0.4 % (0.0-1.0); EOS # 0.1 10^3/uL (0.0-0.5); EOS % 0.9 % (0.0-3.0); HEMATOCRIT 46.9 % (36.0-47.0); LYMPH # 2.4 10^3/uL (1.5-5.0); LYMPH % 32.6 % (24.0-44.0); MEAN CORPUSCULAR HEMOGLOBIN 30.3 pg (27.0-33.0); MEAN CORPUSCULAR VOLUME 94.7 fl (80.0-96.0); MONO # 0.6 10^3/uL (0.0-0.8); MONO % 7.6 % (0.0-5.0); NEUTROPHILS # 4.3 10^3/uL (1.5-8.5); NEUTROPHILS % 58.2 % (36.0-66.0); PLATELET COUNT, AUTOMATED 245 10^3/uL (150-450); RED BLOOD COUNT 4.95 10^6/uL (4.00-5.40); WHITE BLOOD COUNT 7.4 10^3/uL (4.0-10.0)
[2019-12-23 20:08] LABS: INR 0.92; PROTHROMBIN TIME 12.6 SECONDS (12.5-14.3)
[2019-12-23 20:28] LABS: ALBUMIN 4.2 GM/DL (3.2-5.2); ALT/SGPT 18 U/L (12-78); BILIRUBIN,DIRECT 0.1 MG/DL (0.0-0.2); BILIRUBIN,TOTAL 0.6 MG/DL (0.2-1.0); BLOOD UREA NITROGEN 11 MG/DL (7-18); CARBON DIOXIDE LEVEL 28 MEQ/L (21-32); CHLORIDE LEVEL 107 MEQ/L (98-107); CK-MB VALUE MASS < 1.0 NG/ML (<3.6); CPK CREATINE PHOSPHOKINASE 43 U/L (26-192); CREATININE FOR GFR 0.75 MG/DL (0.55-1.30); GLOMERULAR FILTRATION RATE > 60.0 (>51); GLUCOSE, FASTING 105 MG/DL (70-100); LIPASE 118 U/L (73-393); MB/CK RELATIVE INDEX 2.33 (< OR =4); POTASSIUM SERUM 3.7 MEQ/L (3.5-5.1); SODIUM LEVEL 141 MEQ/L (136-145); TOTAL PROTEIN 7.6 GM/DL (6.4-8.2); TROPONIN I < 0.02 NG/ML (< 0.10)
[2019-12-23 21:01] VITALS: BP 161/75
--- NOTE | 2019-12-24 07:54 | ECGEPIP ---
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
== END 2019-12-23 21:18 | disposition home or self-care (01) ==
LOC: M ED 18:39
DX: R00.2 Palpitations (principal); K21.9 Gastro-esophageal reflux disease without esophagitis; Z88.0 Allergy status to penicillin; Z88.1 Allergy status to other antibiotic agents; Z88.2 Allergy status to sulfonamides; Z88.8 Allergy status to other drugs, medicaments and biological substances; Z91.030 Bee allergy status; Z79.899 Other long term (current) drug therapy

== ENCOUNTER → 2020-01-22 | Outpatient (REF) | payer OTHER | LOC: M LAB REF 16:12 | PROVIDERS: ATTEND Internal Medicine | DX: R51.9 Headache, unspecified (principal); R53.83 Other fatigue; R42 Dizziness and giddiness ==

== ENCOUNTER → 2020-01-31 | Outpatient (REF) | payer OTHER ==
[2020-01-31 18:26] LABS: C REACTIVE PROTEIN QUANTITATIV < 0.30 MG/DL (0.00-0.30); RHEUMATOID FACTOR QUANT < 10.0 IU/ML (<15.0)
[2020-01-31 18:36] LABS: HEPATITIS B SURFACE ANTIBODY POSITIVE (POSITIVE)
[2020-01-31 18:47] LABS: HEPATITIS B SURFACE ANTIGEN NEGATIVE (NEGATIVE)
[2020-01-31 19:15] LABS: HEPATITIS C VIRUS ABY INDEX < 0.0 INDEX (<0.8); HIV 1&2 SCREEN CENTAUR NEGATIVE (NEGATIVE)
== END ==
LOC: M SFHCPLAZ 13:23
PROVIDERS: ATTEND Internal Medicine Infectious Disease
DX: M25.50 Pain in unspecified joint (principal); Z77.120 Contact with and (suspected) exposure to mold (toxic); Z11.3 Encounter for screening for infections with a predominantly sexual mode of transmission

== ENCOUNTER → 2020-02-07 | Outpatient (CLI) | payer OTHER ==
--- NOTE | 2020-02-07 12:13 | REPVR ---
PROCEDURE INFORMATION: Exam: CT Maxillofacial Without Contrast, Sinus Exam date and time: 02/07/2020 11:33 AM Age: 54 years old Clinical indication: Sinusitis; Chronic; Patient HX: PT states she has vertigo. . . Had difficulty laying down; Additional info: Chronic maxillary sinusitis TECHNIQUE: Imaging protocol: CT Maxillofacial without contrast. Focus on the sinuses. Radiation optimization: All CT scans at this facility use at least one of these dose optimization techniques: automated exposure control; mA and/or kV adjustment per patient size (includes targeted exams where dose is matched to clinical indication); or iterative reconstruction. COMPARISON: No relevant prior studies available. FINDINGS: Limitations: The study is mildly limited due to patient motion artifact. Frontal sinuses: Normal. No air-fluid levels. Ethmoid air cells: Normal. No air-fluid levels. Sphenoid sinuses: Normal. No air-fluid levels. Maxillary sinuses: Normal. No air-fluid levels. 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 Nasal cavity/Septum: Mild rightward bowing of the nasal septum is present. Orbital cavity: Orbits are normal. Globes are unremarkable. Bones/joints: Unremarkable. Soft tissues: Unremarkable. IMPRESSION: No acute sinusitis. Electronically signed by: Herve Simmons On 02/07/2020 12:13:34 PM
== END ==
LOC: M RAD 11:25
PROVIDERS: ATTEND Otolaryngology
DX: J32.0 Chronic maxillary sinusitis (principal)

== ENCOUNTER → 2020-02-13 | Outpatient (REF) | payer OTHER | LOC: M LAB REF 12:10 | PROVIDERS: ATTEND Internal Medicine | DX: R51.9 Headache, unspecified (principal); R53.83 Other fatigue; R42 Dizziness and giddiness ==

== ENCOUNTER → 2020-03-31 | Outpatient (CLI) | payer SELFPAY | LOC: M LABSMTC 12:30 | PROVIDERS: ATTEND Pediatrics | DX: Z20.822 Contact with and (suspected) exposure to COVID-19 (principal) ==

== ENCOUNTER → 2020-05-09 | Outpatient (CLI) | payer OTHER | LOC: M LAB 12:17 | PROVIDERS: ATTEND Physician Assistant | DX: T58.8X4A Toxic effect of carbon monoxide from other source, undetermined, initial encounter (principal); X58.XXXA Exposure to other specified factors, initial encounter; Y92.9 Unspecified place or not applicable ==

== ENCOUNTER → 2020-05-20 | Outpatient (CLI) | payer OTHER | LOC: M SLEEP HO 13:29 | PROVIDERS: ATTEND Physician Assistant | DX: G47.33 Obstructive sleep apnea (adult) (pediatric) (principal) ==

== ENCOUNTER → 2020-07-10 | Outpatient (CLI) | payer OTHER ==
[~2020-07-10] MED LIST changes: +METHACHOLINE KIT (J7674) INH ONE; +OMEP40CA4 PO; -OMEP40CA97 PO
== END ==
LOC: M CARPUL 09:25
PROVIDERS: ATTEND Physician Assistant
DX: R06.00 Dyspnea, unspecified (principal)